=== PATIENT | female | born 1945 | race Caucasian/White ===

== ENCOUNTER 2022-04-27 18:18 | Inpatient (IN) ==
[2022-04-27] MEDS ORDERED: IPRATROPIUM BROMIDE/ALBUTEROL respimat INH INH STA (18:53)
[2022-04-27] MEDS ORDERED: guaiFENesin 600 MG TABCR PO STA (18:53)
[2022-04-27] MEDS ORDERED: SODIUM CHLORIDE 0.9% 1000ML 1,000 ML IV ONE (18:53)
[2022-04-27] MEDS ORDERED: dexAMETHasone**PF** 10 MG/ML VIAL IV ONE (18:53)
--- NOTE | 2022-04-27 19:00 | Emergency Department Note ---
Impression & Plan Pneumonia due to COVID-19 virus, Acute and chronic respiratory failure, Elevated troponin ED Provider Note NAME: HAY RICO AGE: 76 SEX: F ARRIVES VIA: Ambulance INFORMANT: Patient ED PROVIDER(S): Karthik Escobedo MD CHIEF COMPLAINT: SOB, Covid-19, referred PLAN: Disposition: Admit MEDICAL DECISION MAKING: The patient is a pleasant 76-year-old woman with a past medical history of chronic respiratory failure, COPD on 2 L home oxygen who presents to the emergency department for by her PCPs office for evaluation of shortness of breath increased cough and congestion over the past couple of days where she tested positive for COVID-19 on a home antigen test in the setting of having her niece who lives with her recently have COVID-19. Patient is vaccinated for COVID-19 but has not received any boosters. Denies any fevers, nausea, vomit ing, diarrhea urinary symptoms patient reports she is eating but is probably not hydrating much. The patient does minimize her symptoms to a degree and reports she only took a COVID test to see if she had a given others did as well. However family member at the bedside who also is a caregiver for the patient reports that it was noticed that she was working harder to breathe and had increased congestion. Additionally they note that her O2 saturation last night was a constant 60% with a good waveform per the patient's family member who is also a clinical nursing instructor. Given the report that her respiratory status has been worsening the patient is in agreement with plan for admission. On arrival the patient is chronically ill-appearing but no acute distress, afebrile with O2 saturation 88-90% on her 2 L nasal cannula. She has diminished breath sounds bilaterally with underlying wheeze. She has mild pursed lip breathing which she reports is chronic and intermittent for her. EKG without overt acute ischemia. Chest x-ray with nonspecific reticular opacities. WBC, H/H and platelets within normal limits. Chemistry without metabolic acidosis. Bicarbonate is 40 consistent with history of suspected chronic hypercapnia with VBG demonstrating a PCO2 of 73. pH is within normal limits. High-sensitivity troponin 31, nonspecific. BNP is within normal limits. Lipase is not elevated. COVID-19 PCR was positive. Patient was treated with IV fluid hydration, dexamethasone, Combivent and guaifenesin. She did require placement on oxime mask due to O2 saturation going down to 80% mostly due to inability to keep her cannula in her mouth given she is mouth breathing. Case was discussed with Dr. Ashby, [facility] hospitalist, who will evaluate the patient for admission. Triage Nursing notes reviewed and agree them. Prior medical records reviewed Vital Signs: reviewed and remarkable for hypoxia. Differential diagnosis: Reactive airway disease, pneumonia, pneumothorax, COPD, CHF, infections, cardiac ischemia, pulmonary embolism, musculoskeletal, gastrointestinal, as well as other pathologies. ER treatment provided: See below. Diagnostics interpreted by me: ECG: Sinus rhythm with sinus arrhythmia, 94 bpm, no ectopy, no overt ST el evation or depression, QTC 430, QRS 70 Cardiac Monitoring: An order for continuous cardiac monitoring was placed and demonstrated sinus rhythm, 94 bpm, no ectopy Laboratory studies: See below Imaging studies: See below Consultation(s): Case was discussed with Dr. Ashby, [facility] hospitalist, who will evaluate the patient for admission. HPI: The patient is a pleasant 76-year-old woman with a past medical history of chronic respiratory failure, COPD on 2 L home oxygen who presents to the emergency department for by her PCPs office for evaluation of shortness of michael ath increased cough and congestion over the past couple of days where she tested positive for COVID-19 on a home antigen test in the setting of having her niece who lives with her recently have COVID-19. Patient is vaccinated for COVID-19 but has not received any boosters. Denies any fevers, nausea, vomiting, diarrhea urinary symptoms patient reports she is eating but is probably not hydrating much. The patient does minimize her symptoms to a degree and reports she only took a COVID test to see if she had a given others did as well. However family member at the bedside who also is a caregiver for the patient reports that it was noticed that she was working harder to breathe and had incre ased congestion. Additionally they note that her O2 saturation last night was a constant 60% with a good waveform per the patient's family member who is also a clinical nursing instructor. Given the report that her respiratory status has been worsening the patient is in agreement with plan for admission. ROS: See above HPI for pertinent positives & negatives. A total of 10 systems reviewed and were otherwise negative. VITALS:See Below PHYSICAL EXAMINATION: GENERAL: Awake, alert, chronically ill-appearing, cachectic, in no distress HENT: Normocephalic, atraumatic. Oropharynx with dry mucous membranes and otherwise unremarkable. EYES: Normal conjunctiva. Sclera non-icteric. NECK: Supple. No nuchal rigidity. FROM. No JVD. RESPIRATORY: Diminished breath sounds bilaterally with underlying wheeze. CARDIAC: Regular rate, normal rhythm. Extremities warm and well perfused. Pulses equal. ABDOMEN: Soft, non-distended. No tenderness to palpation. No rebound or guarding. No masses. RECTAL: Deferred. MUSCULOSKELETAL: Chest examination reveals no tenderness. The back is symmetrical on inspection without obvious abnormality. There is no CVA tenderness to palpation. No joint edema. LOWER EXTREMITIES: Calves are equal size bilaterally and non-tender. No edema. No discoloration. NEURO: Normal sensorium. No sensory or motor deficits noted. SKIN: No rash or jaundice noted. ED COURSE: Critical Care: I have personally spent greater than 35 minutes of critical care time in the direct management of this patient. This includes bedside care, interpretation of diagnostic studies, and testing, discussion with consultants, patient, and family members, and other required patient management activities. This 35 minutes is in excess of all separately billable procedures. Karthik Escobedo MD Past Med/Surg History Medical History Chronic respiratory failure COPD (chronic obstructive pulmonary disease) Subclavian artery stenosis, left Family History Other Family history non-contributory Social History Smoking Status: Former smoker Hx Alcohol Use: No Hx Substance Use: No Current Living Situation: Family Feels Safe at Home: Yes Assistive Devices: Nebulizer and Oxygen - Continuous Allergies Allergies Allergy/AdvReac Type Severity Reaction Status Date / Time No Known Allergies Allergy Mild Verified 04/28/22 00:50 Home Meds Home Medications Medication Instructions Recorded Confirmed acetaminophen 500 mg tablet 500 mg PO Q6H PRN Pain 04/28/22 04/28/22 (Tylenol Extra Strength) albuterol sulfate 0 mg inhalation Q4H PRN Shortness 04/28/22 04/28/22 Of Breath Or Wheezing atorvastatin 20 mg tablet 1 tab PO DAILY 04/28/22 04/28/22 cholecalciferol (vitamin D3) 125 125 mcg PO 2XWK 04/28/22 04/28/22 mcg (5,000 unit) tablet (Vitamin D3) ibuprofen 200 mg tablet 400 mg PO Q6H PRN Pain 04/28/22 04/28/22 Results & Data (ED) Vital Signs Vital Signs - 24 hr 04/27/22 18:30 04/27/22 18:30 04/27/22 18:30 Temperature Temperature Source Pulse Rate 100 H Pulse Rate [Apical] Respiratory Rate 26 H Respiratory Effort / Characteristics Spontaneous Short of Breath SOB on Exertion Short of Breath Respiratory Depth Shallow Respiratory Pattern Tachypnea Blood Pressure 126/79 Blood Pressure [Left Arm] Blood Pressure Mean 94 Blood Pressure Mean [Left Arm] Pulse Oximetry 90 90 Oxygen Delivery Method Nasal Cannula Nasal Cannula Nasal Cannula Oxygen Flow Rate 2 2 2 Sepsis Recent Fever Within 48 Hours No Sepsis New/Unexplained Change in Mental Status No Sepsis Action Taken by Nursing No Action Required Oxygen Flow Rate - Titration Pulse Oximetry Post Tiitration 04/27/22 18:46 04/27/22 18:53 04/27/22 20:17 Temperature 37.2 C Temperature Source Oral Pulse Rate Pulse Rate [Apical] Respiratory Rate Respiratory Effort / Characteristics Respiratory Depth Respiratory Pattern Blood Pressure Blood Pressure [Left Arm] Blood Pressure Mean Blood Pressure Mean [Left Arm] Pulse Oximetry 90 85 L Oxygen Delivery Method Nasal Cannula Nasal Cannula Oxymask Oxygen Flow Rate 2 2 Sepsis Recent Fever Within 48 Hours Sepsis New/Unexplained Change in Mental Status Sepsis Action Taken by Nursing Oxygen Flow Rate - Titration 4 Pulse Oximetry Post Tiitration 92 04/27/22 22:03 04/27/22 22:03 04/28/22 00:00 Temperature Temperature Source Pulse Rate Pulse Rate [Apical] 98 H 84 Respiratory Rate 22 19 Respiratory Effort / Characteristics Respiratory Depth Respiratory Pattern Blood Pressure Blood Pressure [Left Arm] 132/71 130/73 Blood Pressure Mean Blood Pressure Mean [Left Arm] 91 92 Pulse Oximetry 80 L 80 L 96 Oxygen Delivery Method Nasal Cannula Nasal Cannula Oxymask Room Air Oxygen Flow Rate 2 2 Sepsis Recent Fever Within 48 Hours Sepsis New/Unexplained Change in Mental Status Sepsis Action Taken by Nursing Oxygen Flow Rate - Titration 5 Pulse Oximetry Post Tiitration 98 Laboratory Data Attestation: I reviewed the patient's lab results. Result diagrams: 04/28/22 05:51 04/27/22 19:56 Lab Results 04/27/22 04/27/22 04/27/22 Range/Units 18:53 18:53 18:57 WBC 5.31 (4.8-10.8) K/ul RBC 4.21 (3.93-5.22) M/uL Hgb 13.4 (12.0-16.0) g/dl Hct 42.2 (34.1-44.9) % MCV 100.2 H (80.0-100.0) fL MCH 31.8 (25.0-34.0) pg MCHC 31.8 L (32.0-36.0) g/dL RDW Std Deviation 46.4 H (36.4-46.3) fL RDW Coeff of Usman 12.5 (11.5-14.5) % Plt Count 215 (130-400) K/uL MPV 10.0 (9.4-12.3) fL Immature Gran % (Auto) 0.2 % Neut % (Auto) 72.3 % Lymph % (Auto) 15.3 % [place]oshone % (Auto) 10.7 % Eos % (Auto) 1.1 % Baso % (Auto) 0.4 % Neut # (Auto) 3.84 (1.4-6.5) K/uL Lymph # (Auto) 0.81 L (1.2-3.4) K/uL Shoshone # (Auto) 0.57 (0.24-0.82) K/uL Eos # (Auto) 0.06 (0-0.50) K/uL Baso # (Auto) 0.02 (0-0.2) K/uL Immature Gran # (Auto) 0.01 (0.00-0.02) K/uL VBG pH Cancelled VBG pCO2 Cancelled VBG pO2 Cancelled VBG HCO3 Cancelled VBG O2 Saturation Cancelled VBG Base Excess Cancelled Barometric Pressure Cancelled Sodium (136-145) mmol/L Potassium Chloride (98-107) mmol/L Carbon Dioxide (21-32) mmol/L Anion Gap (3-11) BUN (6-23) mg/dl Creatinine (0.6-1.2) mg/dl Est Cr Clr Drug Dosing ml/min Est GFR ( Amer) ml/min Est GFR (Non-Af Amer) ml/min BUN/Creatinine Ratio (10-20) Glucose (70-99(Fasting)) mg/dl Calcium (8.5-10.1) mg/dl Total Bilirubin (0.2-1.0) mg/dl AST ALT (7-52) U/L Alkaline Phosphatase (34-104) U/L Troponin I High Sens (0-14) pg/ml B-Natriuretic Peptide 38 (0-100) pg/ml Total Protein (6.0-8.3) gm/dl Albumin (3.4-5.0) gm/dl Globulin (2.5-4.0) gm/dl Albumin/Globulin Ratio (0.9-2) Lipase (11-82) U/L SARS-CoV-2 (PCR) (Negative) 04/27/22 04/27/22 04/27/22 Range/Units 18:57 19:18 19:56 WBC (4.8-10.8) K/ul RBC (3.93-5.22) M/uL Hgb (12.0-16.0) g/dl Hct (34.1-44.9) % MCV (80.0-100.0) fL MCH (25.0-34.0) pg MCHC (32.0-36.0) g/dL RDW Std Deviation (36.4-46.3) fL RDW Coeff of Usman (11.5-14.5) % Plt Count (130-400) K/uL MPV (9.4-12.3) fL Immature Gran % (Auto) % Neut % (Auto) % Lymph % (Auto) % [place]oshone % (Auto) % Eos % (Auto) % Baso % (Auto) % Neut # (Auto) (1.4-6.5) K/uL Lymph # (Auto) (1.2-3.4) K/uL Shoshone # (Auto) (0.24-0.82) K/uL Eos # (Auto) (0-0.50) K/uL Baso # (Auto) (0-0.2) K/uL Immature Gran # (Auto) (0.00-0.02) K/uL VBG pH 7.39 VBG pCO2 73 H VBG pO2 19 VBG HCO3 44 VBG O2 Saturation < 60.0 VBG Base Excess 15.5 Barometric Pressure Sodium 137 (136-145) mmol/L Potassium TNP Chloride 92 L (98-107) mmol/L Carbon Dioxide 40 H (21-32) mmol/L Anion Gap 5 (3-11) BUN 10 (6-23) mg/dl Creatinine 0.58 L (0.6-1.2) mg/dl Est Cr Clr Drug Dosing 84.8 ml/min Est GFR ( Amer) 104.5 ml/min Est GFR (Non-Af Amer) 90.2 ml/min BUN/Creatinine Ratio 17.2 (10-20) Glucose 91 (70-99(Fasting)) mg/dl Calcium 8.9 (8.5-10.1) mg/dl Total Bilirubin 0.6 (0.2-1.0) mg/dl AST TNP ALT 15 (7-52) U/L Alkaline Phosphatase 59 (34-104) U/L Troponin I High Sens 31.0 H (0-14) pg/ml B-Natriuretic Peptide (0-100) pg/ml Total Protein 6.9 (6.0-8.3) gm/dl Albumin 3.7 (3.4-5.0) gm/dl Globulin 3.2 (2.5-4.0) gm/dl Albumin/Globulin Ratio 1.2 (0.9-2) Lipase 18 (11-82) U/L SARS-CoV-2 (PCR) POSITIVE A* (Negative) 04/27/22 Range/Units 19:56 WBC (4.8-10.8) K/ul RBC (3.93-5.22) M/uL Hgb (12.0-16.0) g/dl Hct (34.1-44.9) % MCV (80.0-100.0) fL MCH (25.0-34.0) pg MCHC (32.0-36.0) g/dL RDW Std Deviation (36.4-46.3) fL RDW Coeff of Usman (11.5-14.5) % Plt Count (130-400) K/uL MPV (9.4-12.3) fL Immature Gran % (Auto) % Neut % (Auto) % Lymph % (Auto) % [place]oshone % (Auto) % Eos % (Auto) % Baso % (Auto) % Neut # (Auto) (1.4-6.5) K/uL Lymph # (Auto) (1.2-3.4) K/uL [place]oshone # (Auto) (0.24-0.82) K/uL Eos # (Auto) (0-0.50) K/uL Baso # (Auto) (0-0.2) K/uL Immature Gran # (Auto) (0.00-0.02) K/uL VBG pH VBG pCO2 VBG pO2 VBG HCO3 VBG O2 Saturation VBG Base Excess Barometric Pressure Sodium (136-145) mmol/L Potassium 4.0 Chloride (98-107) mmol/L Carbon Dioxide (21-32) mmol/L Anion Gap (3-11) BUN (6-23) mg/dl Creatinine (0.6-1.2) mg/dl Est Cr Clr Drug Dosing ml/min Est GFR ( Amer) ml/min Est GFR (Non-Af Amer) ml/min BUN/Creatinine Ratio (10-20) Glucose (70-99(Fasting)) mg/dl Calcium (8.5-10.1) mg/dl Total Bilirubin (0.2-1.0) mg/dl AST 23 ALT (7-52) U/L Alkaline Phosphatase (34-104) U/L Troponin I High Sens (0-14) pg/ml B-Natriuretic Peptide (0-100) pg/ml Total Protein (6.0-8.3) gm/dl Albumin (3.4-5.0) gm/dl Globulin (2.5-4.0) gm/dl Albumin/Globulin Ratio (0.9-2) Lipase (11-82) U/L SARS-CoV-2 (PCR) (Negative) Administered Medications Sodium Chloride (Nss 1000ml) 1,000 mls @ 75 mls/hr IV .[id number] ALBERTINA Stop: 04/28/22 15:42 Last Infusion: 04/28/22 05:36 Dose: 75 mls/hr Documented By: Infusion: 04/28/22 03:33 Dose: 0 mls/hr Documented By: Admin: 04/28/22 02:50 Dose: 75 mls/hr Documented By: JOY Discontinued Medications Albuterol (Ipratropium Amenia/Albuterol Respimat Inh) 2 puffs INH NOW STA Stop: 04/27/22 18:54 Last Admin: 04/27/22 20:21 Dose: 120 puffs Documented By: EDGAR Dexamethasone Sodium Phosphate (DexamethasonePf 10 Mg/Ml Vial) 10 mg IV NOW ONE Stop: 04/27/22 18:54 Last Admin: 04/27/22 20:20 Dose: 10 mg Documented By: EDGAR Guaifenesin (Guaifenesin 600 Mg Tabcr) 1,200 mg PO NOW STA Stop: 04/27/22 18:54 Last Admin: 04/27/22 20:20 Dose: 1,200 mg Documented By: EDGAR Sodium Chloride (Nss 1000ml) 1,000 mls @ 999 mls/hr IV .[id number] ONE Stop: 04/27/22 19:53 Last Infusion: 04/27/22 22:02 Dose: 0 mls/hr Documented By: Admin: 04/27/22 20:20 Dose: 999 mls/hr Documented By: EDGAR Remdesivir 200 mg/ Sodium (Chloride) 250 mls @ 125 mls/hr IV ONE ONE; Protocol Stop: 04/28/22 04:44 Last Infusion: 04/28/22 05:36 Dose: 0 mls/hr Documented By: Admin: 04/28/22 03:22 Dose: 125 mls/hr Documented By: JOY Imaging Data Radiologist's Impression: Chest X-Ray 04/27/22 18:53 XR chest 1V portable CLINICAL HISTORY: Chest Pain TECHNIQUE: Single frontal radiograph of the chest was obtained. Comparison: Comparison is made to chest radiograph 08/13/2016 FINDINGS: No lines and tubes are seen. The cardiomediastinal silhouette is normal. Reticular interstitial opacities are seen. No evidence of pleural effusion or pneumothorax. IMPRESSION: No acute chest disease. ACT 112: Negative or not required by law. Electronically signed by: Winston Adkins M.D. 04/27/2022 7:14 PM Discharge Plan Visit Data Chief Complaint: Shortness of Breath/Dyspnea ED Provider: Karthik Escobedo Discharge Problem: Pneumonia due to COVID-19 virus, Acute and chronic respiratory failure, Elevated troponin Patient Disposition: Admitted As Inpatient Discharge Instructions Interventions: ED Discharge Assessment Last Done: 04/28/22 01:54 : Acute and chronic respiratory failure Qualifiers: Respiratory failure complication: hypoxia and hypercapnia Qualified Code(s): J96.21 - Acute and chronic respiratory failure with hypoxia
[2022-04-27 19:15] LABS: Basophils # (auto) 0.02 K/uL (0-0.2); Basophils % (auto) 0.4 %; Eosinophils # (auto) 0.06 K/uL (0-0.50); Eosinophils % (auto) 1.1 %; Hematocrit (blood only) 42.2 % (34.1-44.9); Hemoglobin 13.4 g/dl (12.0-16.0); Immature Granulocytes # (auto) 0.01 K/uL (0.00-0.02); Immature Granulocytes % (auto) 0.2 %; Lymphocytes # (auto) 0.81 K/uL (1.2-3.4); Lymphocytes % (auto) 15.3 %; Mean Corpuscular Hemoglobin 31.8 pg (25.0-34.0); Mean Corpuscular Hgb Conc 31.8 g/dL (32.0-36.0); Mean Corpuscular Volume 100.2 fL (80.0-100.0); Monocytes # (auto) 0.57 K/uL (0.24-0.82); Monocytes % (auto) 10.7 %; Neutrophils # (auto) 3.84 K/uL (1.4-6.5); Neutrophils % (auto) 72.3 %; Platelet Count 215 K/uL (130-400); RDW Coefficient of Variation 12.5 % (11.5-14.5); RDW Standard Deviation 46.4 fL (36.4-46.3); Red Blood Count 4.21 M/uL (3.93-5.22); White Blood Count 5.31 K/ul (4.8-10.8)
--- NOTE | 2022-04-27 19:15 | XRay Report ---
XR chest 1V portable CLINICAL HISTORY: Chest Pain TECHNIQUE: Single frontal radiograph of the chest was obtained. Comparison: Comparison is made to chest radiograph 08/13/2016 FINDINGS: No lines and tubes are seen. The cardiomediastinal silhouette is normal. Reticular interstitial opaci ties are seen. No evidence of pleural effusion or pneumothorax. IMPRESSION: No acute chest disease. ACT 112: Negative or not required by law. Electronically signed by: Winston Adkins M.D. 04/27/2022 7:14 PM
[2022-04-27 19:45] LABS: Alanine Aminotransferase 15 U/L (7-52); Albumin Globulin Ratio 1.2 (0.9-2); Albumin Level 3.7 gm/dl (3.4-5.0); Alkaline Phosphatase 59 U/L (34-104); Anion Gap 5 (3-11); BUN Creatinine Ratio 17.2 (10-20); Bilirubin,Total 0.6 mg/dl (0.2-1.0); Blood Urea Nitrogen 10 mg/dl (6-23); Calcium 8.9 mg/dl (8.5-10.1); Carbon Dioxide 40 mmol/L (21-32); Chloride 92 mmol/L (98-107); Creatinine Clr Calc Pharmacy 84.8 ml/min; Est GFR (African American) 104.5 ml/min; Est GFR (Non-African American) 90.2 ml/min; Globulin 3.2 gm/dl (2.5-4.0); Glucose 91 mg/dl (70-99(Fasting)); Lipase 18 U/L (11-82); Sodium 137 mmol/L (136-145); Total Protein 6.9 gm/dl (6.0-8.3)
[2022-04-27 20:08] LABS: Base Excess VBG 15.5 mEq/L; HCO3 VBG 44 mmol/L; Oxygen Saturation VBG < 60.0 %; PCO2 VBG 73 mmHg (38-50); PO2 VBG 19 mmHg; pH VBG 7.39 (7.36-7.41)
[2022-04-28] MEDS ORDERED: LEVALBUTEROL HCL 1.25 MG/3 ML NEB NEB PRN ×2 (02:23→13:04)
[2022-04-28] MEDS ORDERED: ONDANSETRON INJ 2 MG/ML 2 ML VIAL IV PRN (02:23)
[2022-04-28] MEDS ORDERED: NITROGLYCERIN SL 0.4 MG/TAB TAB SL PRN (02:23)
[2022-04-28] MEDS ORDERED: POLYETHYLENE (MIRALAX) 17 GM PACK PO PRN (02:23)
[2022-04-28] MEDS ORDERED: SODIUM CHLORIDE 0.9% 1000ML 1,000 ML IV SCH (02:23)
[2022-04-28] MEDS ORDERED: REMDESIVIR 200 MG in SODIUM CHLORIDE 0.9% 210 ML IV ONE (02:45)
[2022-04-28 06:12] LABS: Basophils # (auto) 0.01 K/uL (0-0.2); Basophils % (auto) 0.4 %; Hemoglobin 11.6 g/dl (12.0-16.0); Immature Granulocytes # (auto) 0.01 K/uL (0.00-0.02); Immature Granulocytes % (auto) 0.4 %; Lymphocytes # (auto) 0.33 K/uL (1.2-3.4); Lymphocytes % (auto) 12.4 %; Mean Corpuscular Hemoglobin 32.1 pg (25.0-34.0); Mean Corpuscular Hgb Conc 32.2 g/dL (32.0-36.0); Mean Corpuscular Volume 99.7 fL (80.0-100.0); Mean Platelet Volume 9.7 fL (9.4-12.3); Monocytes # (auto) 0.03 K/uL (0.24-0.82); Monocytes % (auto) 1.1 %; Neutrophils # (auto) 2.28 K/uL (1.4-6.5); Neutrophils % (auto) 85.7 %; Platelet Count 222 K/uL (130-400); RDW Coefficient of Variation 12.2 % (11.5-14.5); RDW Standard Deviation 44.5 fL (36.4-46.3); Red Blood Count 3.61 M/uL (3.93-5.22); White Blood Count 2.66 K/ul (4.8-10.8)
--- NOTE | 2022-04-28 06:16 | History and Physical Report ---
DATE OF ADMISSION: 04/28/22 CHIEF COMPLAINT: Shortness of breath. HISTORY OF PRESENT ILLNESS: A 76-year-old female with past medical history significant for COPD, chronic respiratory failure on 2 liters oxygen at home, history of hyperlipidemia, questionable MS, history of transverse myelitis, who presents with shortness of breath. The patient says she is having increased shortness of breath and mild cough for the last couple of days and she has some nasal congestion and at home she tested COVID positive. It looks like she was having increased breathing at home and she lives with her granddaughters. Her caregiver when checked her oxygen saturation yesterday it was 60%, but patient refused to come to the hospital , and today when EMS arrived she was saturating only at 67% and she was brought in here. In the ER, initially oxygen was 88% to 90% on 2 liters, but later on she was required to be placed on OxyMask as oxygen saturation was going down to 80% as the patient had inability to keep her cannula in her month given her mouth breathing. Currently on Ventimask she is saturating okay. Speaking in full sentences, resting comfortably. The patient says she thinks she has mild COVID and she had actually wanted to stay at home. She was reluctant to take remdesivir because of possible long-term side effects, but she agreed to try. Denies any headache. No blurred visions, no earache. Has some runny nose. No sore throat. Mild cough. No nausea, no vomiting, no chest pain. Appetite is okay. No abdominal pain. Has some diarrhea. Normal bladder, not micturating much. She says her ambulatory status is on walker and wheelchair. ALLERGIES: No known drug allergies. PAST MEDICAL HISTORY: As mentioned above. PAST SURGICAL HISTORY: Left hip surgery. MEDICATIONS: The patient says she is only taking atorvastatin 20 mg p.o. daily and calcium tablet and nebs at home. FAMILY HISTORY: The patient says is significant for hypertension, diabetes, and cancer in the family. SOCIAL HISTORY: She used to smoke, but quit smoking many years ago. Denies any drug use or alcohol. Lives with her granddaughter. REVIEW OF SYSTEMS: As per HPI. Rest of review of systems is negative. PHYSICAL EXAMINATION: GENERAL: The patient is of moderate build, not in acute distress. VITAL SIGNS: Temperature 37.2, pulse 98, respiratory rate 22, blood pressure 132/71, oxygen currently in 90s with Ventimask. HEENT: Pupils equal, round, and reactive to light. NECK: No JVD. No neck masses. CARDIOVASCULAR: S1 and S2 heard. Regular rate and rhythm. No murmur, no gallop. RESPIRATORY SYSTEM: Normal AP diameter. No accessory muscle use. Diminished bilateral breath sounds. No obvious wheezing or crackles. ABDOMEN: Soft, bowel sounds present, nontender, no distention. CENTRAL NERVOUS SYSTEM: Cranial nerves II through XII are grossly intact, nonfocal. EXTREMITIES: No edema, no erythema. LABORATORY DATA: WBC 5.3, hemoglobin 13.4, hematocrit 42.2, platelets 215. Venous blood gas, pH of 7.39, pCO2 of 73, pO2 of 19, bicarbonate 44. Sodium 137, potassium 4, chloride 92, bicarbonate 40, BUN 10, creatinine 0.5, serum glucose 91, calcium 8.9, total bilirubin 0.6, AST 23, ALT 15, alkaline phosphatase 59. BNP 38. Lipase 18. SARS-CoV-2 PCR positive. IMAGING DATA: Chest x-ray, no acute chest disease. EKG: Sinus rhythm with mild sinus arrhythmia at a rate of 94, no significant change was found. ASSESSMENT AND PLAN: This is a 76-year-old female who presents with [id number] respiratory failure secondary to COVID. 1. [id number] respiratory failure: The patient has history of chronic obstructive pulmonary disease and chronically is on 2 liters oxygen, was saturating only 60% at home. COVID positive, has symptoms for the last 2 days. Chest x-ray okay. The patient is COVID vaccinated twice, but not boosted. Meets criteria for remdesivir, which the patient initially was reluctant, but okay to try. Will be started on remdesivir and Decadron and follow remdesivir labs and follow the response. Will monitor in the hospital. Will also place on inhalers and nebs p.r.n. 2. Hyperlipidemia: Continue statin. 3. Deep venous thrombosis prophylaxis: With Lovenox. DISPOSITION: Admit to med tele. PT/OT prior to discharge. Social service to help with discharge planning. Job ID: [id number] [facility]on
[2022-04-28 06:45] LABS: BUN Creatinine Ratio 16.7 (10-20); Calcium 7.7 mg/dl (8.5-10.1); Creatinine Clr Calc Pharmacy 75.7 ml/min; Est GFR (Non-African American) 92.3 ml/min; Magnesium 1.6 mg/dl (1.7-2.4); Potassium 4.3 mmol/L (3.5-5.1)
[2022-04-28] MEDS: ALBUTEROL HFA 8 GM INHALER INH SCH ×2 (07:26→11:39)
[2022-04-28] MEDS: IPRATROPIUM BROMIDE HFA INHALER INH SCH ×2 (07:27→11:40)
[2022-04-28] MEDS: CALCIUM 600MG + VIT D 400 IU TAB PO SCH ×2 (08:44→22:40)
[2022-04-28] MEDS: ATORVASTATIN 20 MG TAB PO SCH (08:44)
[2022-04-28] MEDS: ENOXAPARIN INJ 40 MG/0.4 ML SYR SQ SCH (08:45)
[2022-04-28] MEDS: MAGNESIUM SULFATE / D5W 1 GM/100 ML BAG IV SCH ×2 (08:46→10:44)
[2022-04-28] MEDS ORDERED: dexAMETHasone 6 MG in SYRINGE 0 ML IV SCH (09:00)
[2022-04-28] MEDS ORDERED: BUDESONIDE 90 MCG INH INH SCH (09:00)
[2022-04-28] MEDS ORDERED: IPRATROPIUM BROMIDE/ALBUTEROL respimat INH INH SCH (09:00)
[2022-04-28] MEDS ORDERED: FLUTICASONE FUROATE 100MCG 14 PUFFS/INHALER INH SCH (09:00)
[2022-04-28] MEDS ORDERED: IPRATROPIUM BROMIDE NEB SOLN 0.02% 2.5 ML VIAL NEB PRN (13:04)
[2022-04-28] MEDS ORDERED: ALBUTEROL HFA 8 GM INHALER INH PRN (13:06)
--- NOTE | 2022-04-28 17:02 | Hospitalist Progress Note ---
Date of Service April 28, 2022 Assessment & Plan (1) Acute and chronic respiratory failure: Plan: Secondary COVID-19 infection. She has a history of chronic obstructive pulmonary disease and was found to be saturating 60% at home. Chest x-ray reveals no evidence of pneumonia at this point. Patient was vaccinated but not boosted. Continues on remdesivir and Decadron. Monitor closely her level of agitation on steroids. Has a junky cough but reports this is normal. Declines cough syrup at this time. (2) COVID-19 virus infection: Plan: Continue isolation, plan as above. (3) Elevated troponin: Plan: Mildly elevated troponin in setting of acute illness with nonischemic EKG and no evidence of chest pain. Likely related to demand ischemia as opposed to ACS. No further cardiac work-up at this time. (4) Ambulatory dysfunction: Plan: Chronic ambulatory dysfunction, uses a walker to get around. Interested in home resources. Patient lives in more remote location in [place]. Will involve case management for assistance with resources help. (5) COPD (chronic obstructive pulmonary disease): Plan: Currently not in exacerbation. Appears rather symptomatic at baseline, uncertain how many exacerbations per year but has been hospitalized for exacerbations. Started her on umeclidinum/Vilanterol 1 puff daily to continue through discharge which may help with baseline dyspnea. (6) DVT prophylaxis: Plan: Lovenox Full code Disposition-to home pending PT/OT evaluations. Admission and Anticipated Discharge Date Admission Date: April 28, 2022 Subjective 76-year-old female with a history of COPD on chronic home oxygen presented for evaluation of shortness of breath and cough over the past couple of days secondary to COVID-19. Chest x-ray is negative for pneumonia. Patient states that she does not feel short of breath today or have any cough or any symptoms. She is very agitated at being isolated in the current room. She denies using any daily home inhalers and does not see a bobbin loose end finder for COPD. She is agitated from not having a bowel movement yet and from being uncomfortable in bed and being told she can't ambulate. She is requesting help with ambulation and typically ambulates with a walker. She has chronic numbness in her fingers and toes related to self-reported transverse myelitis, and is going through a work-up for diagnosis of possible MS. She depends on family members to provide care for her at home and is interested in resources related to home care. Chronic junky cough reported No shortness of breath or chest pain Review of Systems Review of Systems: All systems are reviewed negative except as indicated above. Physical Exam Physical Exam: CONSTITUTIONAL: WNWD, vitals as above, generally well- appearing, NAD EYES: normal conjunctivae, no scleral icterus ENT: external ear and nose normal,MMM NECK: trachea midline, RESPIRATORY: min rhonchi at bases bilaterally, no rales or wheezes, normal respiratory effort, 2LPM supplemental oxygen in place. CARDIOVASCULAR: regular rate and rhythm, S1 and 2 heard without murmurs, gallops or rubs, no JVD, no peripheral edema CHEST: inspection of chest was normal GASTROINTESTINAL: soft, nontender, ND, no guarding MUSCULOSKELETAL: strength 5/5 throughout, head is normocephalic and atraumatic SKIN: warm and dry NEUROLOGIC: CN 2-12 grossly intact, no sensory deficit, normal cognition, normal speech, no tremor PSYCHIATRIC: alert cooperative and oriented to person, place and time. Results & Data Results & Data ([facility]) Vital Signs (Past 12 Hours) Vital Signs Temp Pulse Pulse Resp BP BP Pulse Ox 04/28/22 16:47 36.6 C 82 22 138/80 95 04/28/22 14:18 93 H 04/28/22 14:18 116 H 04/28/22 06:08 63 04/28/22 11:41 79 18 91 04/28/22 10:30 04/28/22 08:07 36.9 C 71 20 117/79 91 04/28/22 07:27 73 18 96 O2 Del Method O2 Flow Rate 04/28/22 16:47 Oxymask 2.5 04/28/22 14:18 04/28/22 14:18 04/28/22 06:08 04/28/22 11:41 Oxymask 2 04/28/22 10:30 Oxymask 2.5 04/28/22 08:07 Oxymask 2 04/28/22 07:27 Oxymask 2 Laboratory Results Short CBC 04/27/22 04/28/22 Range/Units 18:57 05:51 WBC 5.31 2.66 L (4.8-10.8) K/ul Hgb 13.4 11.6 L (12.0-16.0) g/dl Hct 42.2 36.0 (34.1-44.9) % Plt Count 215 222 (130-400) K/uL BMP 04/27/22 04/27/22 04/28/22 18:57 19:56 05:51 Sodium 137 136 Potassium TNP 4.0 4.3 Chloride 92 L 96 L Carbon Dioxide 40 H 36 H BUN 10 9 Creatinine 0.58 L 0.54 L Glucose 91 140 H Calcium 8.9 7.7 L Liver Function 04/27/22 04/27/22 Range/Units 18:57 19:56 Total Bilirubin 0.6 (0.2-1.0) mg/dl AST TNP 23 ALT 15 (7-52) U/L Alkaline Phosphatase 59 (34-104) U/L Albumin 3.7 (3.4-5.0) gm/dl Medications Administered Current Inpatient Medications Acetaminophen (Acetaminophen 325 Mg Tab) 650 mg PO Q4H PRN PRN Reason: Pain or Fever Stop: 05/28/22 02:22 Albuterol (Albuterol Hfa 8 Gm Inhaler) 1 puffs INH QIDR PRN PRN Reason: SOB/wheezing Stop: 05/28/22 06:59 Atorvastatin Calcium (Atorvastatin 20 Mg Tab) 20 mg PO QAM ALBERTINA Stop: 05/28/22 08:59 Last Admin: 04/28/22 08:44 Dose: 20 mg Enoxaparin Sodium (Enoxaparin Inj 40 Mg/0.4 Ml Syr) 40 mg SQ Q24H ALBERTINA Stop: 05/28/22 08:59 Last Admin: 04/28/22 08:45 Dose: 40 mg Fluticasone Furoate (Fluticasone Furoate 100mcg 14 Puffs/Inhaler) 1 puffs INH DAILY ALBERTINA Stop: 05/28/22 08:59 Last Admin: 04/28/22 08:45 Dose: 1 puffs Dexamethasone 6 mg/ Syringe 1.5 mls @ 1 mls/min IV DAILY ALBERTINA Stop: 05/08/22 08:59 Last Admin: 04/28/22 08:46 Dose: 1 mls/min Remdesivir 100 mg/ Sodium (Chloride) 250 mls @ 250 mls/hr IV Q24H ALBERTINA Stop: 05/02/22 12:59 Ipratropium [place] (Ipratropium [place] Neb Soln 0.02% 2.5 Ml Vial) 0.5 mg NEB Q6R PRN PRN Reason: SOB/wheezing Stop: 05/28/22 18:59 Levalbuterol HCl (Levalbuterol Hcl 1.25 Mg/3 Ml Neb) 1.25 mg NEB Q6R PRN; Protocol PRN Reason: Shortness Of Breath Or Wheezing Stop: 05/28/22 02:22 Multivitamins/Minerals (Calcium 600mg + Vit D 400 Iu Tab) 1 tab PO BID ALBERTINA Stop: 05/28/22 08:59 Last Admin: 04/28/22 08:44 Dose: 1 tab Nitroglycerin (Nitroglycerin Sl 0.4 Mg/Tab Tab) 0.4 mg SL Q5M PRN PRN Reason: Chest Pain Stop: 05/28/22 02:22 Ondansetron HCl (Ondansetron Inj 2 Mg/Ml 2 Ml Vial) 4 mg IV Q6H PRN PRN Reason: Nausea Stop: 05/28/22 02:22 Polyethylene Glycol (Polyethylene (Miralax) 17 Gm Pack) 17 gm PO DAILY PRN PRN Reason: Constipation Stop: 05/28/22 02:22 (1) Acute and chronic respiratory failure Respiratory failure complication: hypoxia and hypercapnia Qualified Code(s): J96.21 - Acute and chronic respiratory failure with hypoxia; J96.22 - Acute and chronic respiratory failure with hypercapnia
--- NOTE | 2022-04-28 18:02 | Electrocardiogram Report ---
Test Reason : Blood Pressure : / mmHG Vent. Rate : 094 BPM Atrial Rate : 094 BPM P-R Int : 152 ms QRS Dur : 070 ms QT Int : 344 ms P-R-T Axes : 088 041 077 degrees QTc Int : 430 ms Sinus rhythm with marked sinus arrhythmia Possible Left atrial enlargement Borderline ECG When compared with ECG of 14-AUG-2016 07:25, No significant change was found Confirmed by Bran Azul ([id number]) on 04/28/2022 6:02:05 PM Referred By: REFERRED SELF Confirmed By:Charles Azul
[2022-04-29] MEDS: ACETAMINOPHEN 325 MG TAB PO PRN ×2 (04:05→09:00)
[2022-04-29 06:42] LABS: Hematocrit (blood only) 37.8 % (34.1-44.9); Hemoglobin 12.4 g/dl (12.0-16.0); Mean Corpuscular Hemoglobin 31.9 pg (25.0-34.0); Mean Corpuscular Hgb Conc 32.8 g/dL (32.0-36.0); Mean Corpuscular Volume 97.2 fL (80.0-100.0); Mean Platelet Volume 9.9 fL (9.4-12.3); Platelet Count 281 K/uL (130-400); RDW Coefficient of Variation 12.1 % (11.5-14.5); RDW Standard Deviation 43.4 fL (36.4-46.3); Red Blood Count 3.89 M/uL (3.93-5.22); White Blood Count 7.43 K/ul (4.8-10.8)
[2022-04-29 07:03] LABS: BUN Creatinine Ratio 28.9 (10-20); C Reactive Protein 1.67 mg/dl (0-0.5); Calcium 8.1 mg/dl (8.5-10.1); Creatinine Clr Calc Pharmacy 90.9 ml/min; Est GFR (African American) 113.6 ml/min; Potassium 4.1 mmol/L (3.5-5.1)
[2022-04-29] MEDS: UMECLIDINIUM/VILANTEROL 62.5/25MCG 7 PUFFS/INHALER INH SCH (08:08)
[2022-04-29] MEDS: ATORVASTATIN 20 MG TAB PO SCH (08:08)
[2022-04-29] MEDS: CALCIUM 600MG + VIT D 400 IU TAB PO SCH ×2 (08:08→19:52)
[2022-04-29] MEDS: ENOXAPARIN INJ 40 MG/0.4 ML SYR SQ SCH (08:08)
[2022-04-29] MEDS ORDERED: dexAMETHasone 4 MG TAB PO SCH (09:00)
[2022-04-29] MEDS ORDERED: REMDESIVIR 100 MG in SODIUM CHLORIDE 0.9% 230 ML IV SCH ×2 (12:00→20:00)
--- NOTE | 2022-04-29 12:50 | Pulmonary Consultation ---
Date of Consultation April 29, 2022 Assessment & Plan (1) COPD (chronic obstructive pulmonary disease): (2) Hypoxemia: (3) Pneumonia due to COVID-19 virus: Plan Impression: 76-year-old female with history of advanced emphysema and chronic hypoxemic respiratory failure admitted with positive COVID test and worsening hypoxemia. Unfortunately we do not have access to her prior database including pulmonary function test and which inhaler she was using. Recommendations: 1. Advanced COPD: The patient clinically has cachexia and conversational dyspnea. She says this is her baseline. I suspect she has advanced COPD. No indication for testing currently in an acute setting. Continue trial of Anoro and use as needed duo nebs. Could consider chronic azithromycin therapy depending on clinical response. 2. COVID infection: I think the patient is outside the window of clinical benefit for remdesivir. She may have benefited from paxlovid in the outpatient setting however this medication is not approved for inpatient setting. Continue Decadron 6 mg daily until oxygen saturations are at baseline. 3. Hypoxemic respiratory failure: This is due to COPD with VQ mismatch as well as chronic hypercarbia. Her venous blood gas showed a pH of 7.39 with a CO2 elevated at 70. She may benefit from nocturnal trilogy in the outpatient setting. Do not think she needs BiPAP currently. 4. Given the patient's hypoxemic hypercarbic respiratory failure and cachexia, she is a poor candidate for mechanical ventilation in the event that her clinical condition should worsen. Recommend discussion with patient regarding goals of therapy with specific attention to CODE STATUS. 5. Management of the patient's other medical issues is deferred to the admitting hospitalist. Thanks for the opportunity participating in the care of this patient. We will follow with you. Feel free to contact us with questions History of Present Illness Attending Physician: Yeni Andrade, DO History of Present Illness Asked by hospitalist to evaluate this patient with COPD and chronic hypoxemic respiratory failure admitted for shortness of breath and COVID. History is obtained from discussion with the patient and reviewed electronic medical record. Patient is a 76-year-old female who previously saw Dr. Thibodeaux although this must of been more than 15 or 20 years ago as there are no clinical notes available to review. She has a history of COPD and chronic hypoxemic respiratory failure. She lives with family members who were diagnosed with COVID several weeks ago. She developed increasing shortness of breath and had a home COVID test which was positive. The patient was seeking outpatient therapy but due to her hypoxemia it was recommended that she be admitted to the hospital. She was admitted and placed on remdesivir although she likely is outside the window for this medication. She was also given dexamethasone. Obtaining history from the patient is difficult as her thought processes are somewhat tangential. She initially was fixated on the fact that she did not want to be in the hospital but then when I asked her about going home she states she does not want a leave the hospital. She is very frustrated that I do not have all of Dr. Thibodeaux's prior notes even though she last saw him over 15 or 20 years ago. She states she has had breathing test performed in the past but we do not have those results available to review. She is been placed on inhalers but cannot recall which ones she uses. She does not report any chronic sputum p roduction. Review of prior notes indicates a prior history of nontuberculous mycobacterial infection. She is tachypneic with conversation however she states her breathing is at her baseline. She does have an albuterol nebulizer which she uses at home on an as-needed basis but usually only uses it once or twice a week. Allergies Allergy/AdvReac Type Severity Reaction Status Date / Time No Known Allergies Allergy Mild Verified 04/28/22 00:50 Home Medications Medication Instructions Recorded Confirmed Type acetaminophen 500 mg tablet 500 mg PO Q6H PRN Pain 04/28/22 04/28/22 History (Tylenol Extra Strength) albuterol sulfate 0 mg inhalation Q4H PRN Shortness 04/28/22 04/28/22 History Of Breath Or Wheezing atorvastatin 20 mg tablet 1 tab PO DAILY 04/28/22 04/28/22 History cholecalciferol (vitamin D3) 125 125 mcg PO 2XWK 04/28/22 04/28/22 History mcg (5,000 unit) tablet (Vitamin D3) ibuprofen 200 mg tablet 400 mg PO Q6H PRN Pain 04/28/22 04/28/22 History Patient History Medical History Chronic respiratory failure COPD (chronic obstructive pulmonary disease) Subclavian artery stenosis, left Family History Other Family history non-contributory Social History Smoking Status: Former smoker Hx Alcohol Use: No Hx Substance Use: No Communication Ability: Effective Current Living Situation: Family Feels Safe at Home: Yes Assistive Devices: Walker and Wheelchair Assistive Devices Comment: pt does not walk ususally, she is chair bound Review of Systems Review of Systems: Please refer to admission H&P. No additions or deletions Physical Exam Constitutional: + cachectic and + frail appearing Neck: trachea midline, no thyromegaly Respiratory: + labored breathing and + tachypneic Auscultation: no crackles and no wheezes Diminished breath sounds bilaterally Cardiovascular: RRR, no murmur, no edema Gastrointestinal (Abdomen): normal bowel sounds, soft, nontender, no hepatosplenomegaly Musculoskeletal: Extremities: extremities normal to inspection Skin: no rashes, warm and dry Neurologic: Nonfocal exam Lymphatic: no cervical lymphadenopathy Results & Data Results & Data ([facility]) Vital Signs (Past 12 Hours) Vital Signs Temp Pulse Pulse Resp BP BP Pulse Ox 04/29/22 07:30 04/29/22 07:55 36.5 C 86 20 126/77 98 04/29/22 06:55 68 04/29/22 03:23 36.6 C 97 H 22 147/70 H 95 O2 Del Method O2 Flow Rate 04/29/22 07:30 Oxymask 3 04/29/22 07:55 Oxymask 3 04/29/22 06:55 04/29/22 03:23 Oxymask 3 Critical Care Results & Data Vital Signs (Past 12 Hours) Vital Signs Temp Pulse Pulse Resp BP BP Pulse Ox 04/29/22 07:30 04/29/22 07:55 36.5 C 86 20 126/77 98 04/29/22 06:55 68 04/29/22 03:23 36.6 C 97 H 22 147/70 H 95 O2 Del Method O2 Flow Rate 04/29/22 07:30 Oxymask 3 04/29/22 07:55 Oxymask 3 04/29/22 06:55 04/29/22 03:23 Oxymask 3 Lab & Micro Results (Past 24 Hours) RBC 3.89 M/uL (3.93-5.22) L 04/29/22 WBC 7.43 K/ul (4.8-10.8) 04/29/22 Hgb 12.4 g/dl (12.0-16.0) 04/29/22 Hct 37.8 % (34.1-44.9) 04/29/22 MCV 97.2 fL (80.0-100.0) 04/29/22 MCH 31.9 pg (25.0-34.0) 04/29/22 MCHC 32.8 g/dL (32.0-36.0) 04/29/22 RDW Standard Deviation 43.4 fL (36.4-46.3) 04/29/22 RDW Coefficient of Variation 12.1 % (11.5-14.5) 04/29/22 Plt Count 281 K/uL (130-400) 04/29/22 MPV 9.9 fL (9.4-12.3) 04/29/22 Na 136 mmol/L (136-145) 04/29/22 K 4.1 mmol/L (3.5-5.1) 04/29/22 Cl 96 mmol/L (98-107) L 04/29/22 CO2 37 mmol/L (21-32) H 04/29/22 Anion Gap 3 (3-11) 04/29/22 BUN 13 mg/dl (6-23) 04/29/22 Creatinine 0.45 mg/dl (0.6-1.2) L 04/29/22 Estimated GFR ( Amer) 113.6 ml/min 04/29/22 Estimated GFR (Non-Af Amer) 98.0 ml/min 04/29/22 BUN/Creatinine Ratio 28.9 (10-20) H 04/29/22 Glu 97 mg/dl (70-99(Fasting)) 04/29/22 Ca 8.1 mg/dl (8.5-10.1) L 04/29/22 AST 23 U/L (13-39) 04/29/22 ALT 16 U/L (7-52) 04/29/22 Calcium Level 8.1 mg/dl (8.5-10.1) L 04/29/22 06:08 Diagnostic Findings (Past 24 Hours) Chest x-ray 04/27/2022 was independently reviewed. Lungs are hyperinflated with emphysematous changes bilaterally. There are some hazy densities in the right lower lobe and left perihilar regions. I & O Totals 24 Hours 04/28/22 04/29/22 04/30/22 06:59 06:59 06:59 Intake Total 1303.75 / 1303.75 1844.583 / 1844.583 Output Total 200 / 200 2049 / 2049 Balance 1103.75 / 1103.75 -205.417 / -205.417 Cumulative 04/27/22 18:07 thru 04/29/22 06:00 Intake Total 3148.333 Output Total 2250 Balance 898.333 RT Ventilator Mngmt (Last Documented) Ventilator Ordered Settings Respiratory Rate 20 04/29/22 07 :55 Ventilator - PT Measurements Respiratory Rate 20 PG Care Time/CCT Total # of Minutes Spent Total Time Spent with Patient: Total time spent is greater than 50% in coordination of care (as documented) at patient's floor/unit and/or counseling patient: Coding Level of Care Code 12501 Initial Inpt Care Lvl 3 Diagnoses COPD (chronic obstructive pulmonary disease) J44.9 Hypoxemia R09.02 Pneumonia due to COVID-19 virus U07.1; J12.82
--- NOTE | 2022-04-29 15:35 | Hospitalist Progress Note ---
Date of Service April 29, 2022 Assessment & Plan (1) Acute and chronic respiratory failure: Plan: Secondary COVID-19 infection. She has a history of chronic obstructive pulmonary disease and was found to be saturating 60% at home. Chest x-ray reveals no evidence of pneumonia at this point. Patient was vaccinated but not boosted. Continues on remdesivir and Decadron. She is agitated again today and feels the steroids are contributing. Will decrease the dose in am. Has a junky cough but reports this is normal. Declines cough syrup at this time. Per pulm/ICU, she is outside the benefit window for remdesivir. Stopping this now. Cont with decadron. (2) COVID-19 virus infection: Plan: Continue isolation, plan as above. (3) Elevated troponin: Plan: Mildly elevated troponin in setting of acute illness with nonischemic EKG and no evidence of chest pain. Likely related to demand ischemia as opposed to ACS. No further cardiac work-up at this time. (4) Ambulatory dysfunction: Plan: Chronic ambulatory dysfunction, uses a walker to get around. Interested in home resources. Patient lives in more remote location in [place]. Will involve case management for assistance with resources help. (5) COPD (chronic obstructive pulmonary disease): Plan: Currently not in exacerbation. Appears rather symptomatic at baseline, uncertain how many exacerbations per year but has been hospitalized for exacerbations. Started her on umeclidinum/Vilanterol 1 puff daily to continue through discharge which may help with baseline dyspnea. Seen by pulmonology who agrees with the trial. Will cont with decadron for now, but will stop remdesivir. Updated outpatient PFTs are needed and outpatient follow-up with pulonology is recommended. (6) DVT prophylaxis: Plan: Lovenox Full code Disposition-to home pending PT/OT evaluations. Yeni Andrade DO [facility] Hospitalist Admission and Anticipated Discharge Date Admission Date: April 28, 2022 Subjective 76-year-old female with a history of COPD on chronic home oxygen presented for evaluation of shortness of breath and cough over the past couple of days secondary to COVID-19. Chest x-ray is negative for pneumonia. Patient states that she does not feel short of breath today or have any cough or any symptoms. She is very agitated at being isolated in the current room. She denies using any daily home inhalers and does not see a school resource officer for COPD. She is agitated from not having a bowel movement yet and from being uncomfortable in bed and being told she can't ambulate. She is requesting help with ambulation and typically ambulates with a walker. She has chronic numbness in her fingers and toes related to self-reported transverse myelitis, and is going through a work-up for diagnosis of possible MS. She depends on family members to provide care for her at home and is interested in resources related to home care. Chronic junky cough reported No shortness of breath or chest pain Review of Systems Review of Systems: All systems are reviewed negative except as indicated above. Physical Exam Physical Exam: CONSTITUTIONAL: WNWD, vitals as above, generally well- appearing, NAD, does appear to have some breathlessness at her baseline which causes her to stop and concentrate on her breathing. EYES: normal conjunctivae, no scleral icterus ENT: external ear and nose normal,MMM NECK: trachea midline, RESPIRATORY: min rhonchi at bases bilaterally, no rales or wheezes, normal respiratory effort, 2LPM supplemental oxygen in place. CARDIOVASCULAR: regular rate and rhythm, S1 and 2 heard without murmurs, gallops or rubs, no JVD, no peripheral edema CHEST: inspection of chest was normal GASTROINTESTINAL: soft, nontender, ND, no guarding MUSCULOSKELETAL: strength 5/5 throughout, head is normocephalic and atraumatic SKIN: warm and dry NEUROLOGIC: CN 2-12 grossly intact, no sensory deficit, normal cognition, normal speech, no tremor PSYCHIATRIC: alert cooperative and oriented to person, place and time. Results & Data Results & Data ([facility]) Vital Signs (Past 12 Hours) Vital Signs Temp Pulse Pulse Resp BP Pulse Ox O2 Del Method 04/29/22 14:52 86 04/29/22 07:30 Oxymask 04/29/22 07:55 36.5 C 86 20 126/77 98 Oxymask 04/29/22 06:55 68 O2 Flow Rate 04/29/22 14:52 04/29/22 07:30 3 04/29/22 07:55 3 04/29/22 06:55 Laboratory Results Short CBC 04/29/22 Range/Units 06:08 WBC 7.43 (4.8-10.8) K/ul Hgb 12.4 (12.0-16.0) g/dl Hct 37.8 (34.1-44.9) % Plt Count 281 (130-400) K/uL BMP 04/29/22 06:08 Sodium 136 Potassium 4.1 Chloride 96 L Carbon Dioxide 37 H BUN 13 Creatinine 0.45 L Glucose 97 Calcium 8.1 L Liver Function 04/29/22 Range/Units 06:08 AST 23 (13-39) U/L ALT 16 (7-52) U/L Medications Administered Current Inpatient Medications Acetaminophen (Acetaminophen 325 Mg Tab) 650 mg PO Q4H PRN PRN Reason: Pain or Fever Stop: 05/28/22 02:22 Last Admin: 04/29/22 09:00 Dose: 650 mg Albuterol (Albuterol Hfa 8 Gm Inhaler) 1 puffs INH QIDR PRN PRN Reason: SOB/wheezing Stop: 05/28/22 06:59 Atorvastatin Calcium (Atorvastatin 20 Mg Tab) 20 mg PO QAM ALBERTINA Stop: 05/28/22 08:59 Last Admin: 04/29/22 08:08 Dose: 20 mg Dexamethasone (Dexamethasone 4 Mg Tab) 6 mg PO DAILY ALBERTINA Stop: 05/29/22 08:59 Last Admin: 04/29/22 08:08 Dose: 6 mg Enoxaparin Sodium (Enoxaparin Inj 40 Mg/0.4 Ml Syr) 40 mg SQ Q24H ALBERTINA Stop: 05/28/22 08:59 Last Admin: 04/29/22 08:08 Dose: 40 mg Ipratropium [place] (Ipratropium [place] Neb Soln 0.02% 2.5 Ml Vial) 0.5 mg NEB Q6R PRN PRN Reason: SOB/wheezing Stop: 05/28/22 18:59 Levalbuterol HCl (Levalbuterol Hcl 1.25 Mg/3 Ml Neb) 1.25 mg NEB Q6R PRN; Protocol PRN Reason: Shortness Of Breath Or Wheezing Stop: 05/28/22 02:22 Multivitamins/Minerals (Calcium 600mg + Vit D 400 Iu Tab) 1 tab PO BID ALBERTINA Stop: 05/28/22 08:59 Last Admin: 04/29/22 08:08 Dose: 1 tab Nitroglycerin (Nitroglycerin Sl 0.4 Mg/Tab Tab) 0.4 mg SL Q5M PRN PRN Reason: Chest Pain Stop: 05/28/22 02:22 Ondansetron HCl (Ondansetron Inj 2 Mg/Ml 2 Ml Vial) 4 mg IV Q6H PRN PRN Reason: Nausea Stop: 05/28/22 02:22 Polyethylene Glycol (Polyethylene (Miralax) 17 Gm Pack) 17 gm PO DAILY PRN PRN Reason: Constipation Stop: 05/28/22 02:22 Last Admin: 04/29/22 09:00 Dose: 17 gm Umeclidinium/Vilanterol (Umeclidinium/Vilanterol 62.5/25mcg 7 Puffs/Inhaler) 1 puffs INH DAILY ALBERTINA Stop: 05/29/22 08:59 Last Admin: 04/29/22 08:08 Dose: 1 puffs (1) Acute and chronic respiratory failure Respiratory failure complication: hypoxia and hypercapnia Qualified Code(s): J96.21 - Acute and chronic respiratory failure with hypoxia; J96.22 - Acute and chronic respiratory failure with hypercapnia
[2022-04-30 07:55] LABS: Creatinine Clr Calc Pharmacy 81.7 ml/min; Est GFR (Non-African American) 94.1 ml/min
[2022-04-30] MEDS: UMECLIDINIUM/VILANTEROL 62.5/25MCG 7 PUFFS/INHALER INH SCH (08:56)
[2022-04-30] MEDS: ATORVASTATIN 20 MG TAB PO SCH (08:56)
[2022-04-30] MEDS: CALCIUM 600MG + VIT D 400 IU TAB PO SCH ×2 (08:56→22:08)
[2022-04-30] MEDS: ENOXAPARIN INJ 40 MG/0.4 ML SYR SQ SCH (08:57)
[2022-04-30] MEDS ORDERED: dexAMETHasone 4 MG TAB PO SCH (09:00)
--- NOTE | 2022-04-30 12:04 | Pulmonology Progress Note ---
Date of Service April 30, 2022 Assessment & Plan (1) COPD (chronic obstructive pulmonary disease): (2) Hypoxemia: (3) Pneumonia due to COVID-19 virus: Plan Impression: 76-year-old female with history of advanced emphysema and chronic hypoxemic and hypercarbic respiratory failure admitted with positive COVID test and worsening hypoxemia. She reports that her oxygenation and breathing are at her baseline currently. Recommendations: 1. Advanced COPD: The patient clinically has cachexia and conversational dyspnea. She says this is her baseline. I suspect she has advanced COPD. Continue Anoro and use as needed duo nebs. Could consider chronic azithromycin therapy depending on clinical response. PT and OT in process. Unclear if the patient can go home. Given the severity of her symptoms, palliative care would definitely be appropriate. 2. COVID infection: Difficult to ascertain how much of the patient's issues are chronic and what is acute. Technically she meets criteria for Decadron based on an oxygen saturation below 94% however this likely represents her baseline level. Her oxygenation is back at her baseline and consideration for tapering her Decadron or discontinuing it would be appropriate. As this was initiated by the primary service, will defer to them. 3. Hypoxemic respiratory failure: This is due to COPD with VQ mismatch as well as chronic hypercarbia. Her venous blood gas showed a pH of 7.39 with a CO2 elevated at 70. She may benefit from nocturnal trilogy in the outpatient setting. Do not think she needs BiPAP currently. 4. Discussed advanced directives with the patient. She states she would not want to be on a ventilator or intubated and she would not want CPR in the event of a cardiac arrest. Her CODE STATUS will be updated to DO NOT INTUBATE DO NOT RESUSCITATE. 5. Management of the patient's other medical issues is deferred to the admitting hospitalist. Thanks for the opportunity participating in the care of this patient. We will follow with you. Feel free to contact us with questions Admission and Anticipated Discharge Date Admission Date: April 28, 2022 Subjective Patient seen and examined. EMR reviewed. She is awake alert and conversant. She continues to exhibit conversational dyspnea but she feels that she is at her baseline. She is coughing but unable to expectorate phlegm. She states she gets that up and then swallows it back down. She is not noted any wheezing. She is not complaining of any chest tightness. No fevers chills or night sweats. She states that she was able to get up and ambulate to the restroom. She lives independently and has family come in and assist. Review of Systems Review of Systems: All systems reviewed & are unremarkable except as noted in Subjective Physical Exam Constitutional: WD/WN, vitals as above + cachectic and + frail appearing Neck: trachea midline, no thyromegaly Respiratory: normal respiratory effort, lungs clear to auscultation + labored breathing and + tachypneic Auscultation: no crackles and no wheezes Cardiovascular: RRR, no murmur, no edema Gastrointestinal (Abdomen): normal bowel sounds, soft, nontender, no hepatosplenomegaly Musculoskeletal: Extremities: extremities normal to inspection Skin: no rashes, warm and dry Lymphatic: no cervical lymphadenopathy Results & Data Results & Data ([facility]) Vital Signs (Past 12 Hours) Vital Signs Temp Pulse Resp BP Pulse Ox O2 Del Method O2 Flow Rate 04/30/22 09:02 Nasal Cannula 3 04/30/22 08:22 36.5 C 94 H 17 131/83 90 Oxymask 3 04/30/22 04:27 36.5 C 76 24 131/74 96 Oxymask 3 Laboratory Results 04/29/22 06:08 04/30/22 06:50 Diagnostic Findings No new imaging PG Care Time/CCT Total # of Minutes Spent Total Time Spent with Patient: Total time spent is greater than 50% in coordination of care (as documented) at patient's floor/unit and/or counseling patient: Coding Level of Care Code 35251 Subseq Hosp Care Lvl 3 Diagnoses COPD (chronic obstructive pulmonary disease) J44.9 Hypoxemia R09.02 Pneumonia due to COVID-19 virus U07.1; J12.82
--- NOTE | 2022-04-30 15:20 | Hospitalist Progress Note ---
Date of Service April 30, 2022 Assessment & Plan (1) Acute and chronic respiratory failure: Plan: Secondary COVID-19 infection. She has a history of chronic obstructive pulmonary disease and was found to be saturating 60% at home. Chest x-ray reveals no evidence of pneumonia at this point. Patient was vaccinated but not boosted. Decadron was stopped yesterday as she is outside the winod[place] of therapeutic benefit. DOing well on decreased dose of decadron, however, per pulm this may also be able to be stopped. Cont with Anoro inhaler and duonebs PRN (2) COVID-19 virus infection: Plan: Continue isolation, plan as above. (3) Elevated troponin: Plan: Mildly elevated troponin in setting of acute illness with nonischemic EKG and no evidence of chest pain. Likely related to demand ischemia as opposed to ACS. No further cardiac work-up at this time. (4) Ambulatory dysfunction: Plan: Chronic ambulatory dysfunction, uses a walker to get around. Interested in home resources. Patient lives in more remote location in [place]. Will involve case management for assistance with resources help. Still awaiting formal evaluation by PT and OT to determine need. (5) COPD (chronic obstructive pulmonary disease): Plan: Currently not in exacerbation. Appears rather symptomatic at baseline; she denies being hospitalized for her breathing in the last couple of years. Started her on umeclidinum/Vilanterol 1 puff daily to continue through discharge which may help with baseline dyspnea. Seen by pulmonology who agrees with the trial. Updated outpatient PFTs are needed and outpatient follow-up with pulmonology is recommended. (6) DVT prophylaxis: Plan: Lovenox Full code Disposition-to home pending PT/OT evaluations. [facility] Admission and Anticipated Discharge Date Admission Date: April 28, 2022 Subjective 76-year-old female with a history of COPD on chronic home oxygen presented for evaluation of shortness of breath and cough over the past couple of days secondary to COVID-19. She continues to appear breathless and have conversational dyspnea but states this is her baseline No worsened symptoms of cough or SOB reported today--states her cough is her chronic cough that she deals with She was shaking her head about the Anoro inhaler and saying she wasn't sure this was working Explained to her the effect will not be immediate and she will need to wait weeks before seeing any effect Discussed her getting PFTs and a pulmonolgist and she states that she simply cannot get to any doctors appts for various reasons Has family but states that she is alone most of the time Reports being mostly wheelchair bound but apparently can use a walker for short distances Still awaiting formal evaluation by therapy. Review of Systems Review of Systems: All systems were reviewed and negative except as indicated on subjective above. Physical Exam Physical Exam: CONSTITUTIONAL: WNWD, vitals as above, generally well- appearing, NAD, does appear to have some breathlessness at her baseline which causes her to stop and concentrate on her breathing. EYES: normal conjunctivae, no scleral icterus ENT: external ear and nose normal,MMM NECK: trachea midline, RESPIRATORY: diminished breath sounds at bases, no rales or wheezes, normal respiratory effort, supplemental oxygen in place. CARDIOVASCULAR: regular rate and rhythm, S1 and 2 heard without murmurs, gallops or rubs, no JVD, no peripheral edema CHEST: inspection of chest was normal GASTROINTESTINAL: soft, nontender, ND, no guarding MUSCULOSKELETAL: strength 5/5 throughout, head is normocephalic and atraumatic SKIN: warm and dry NEUROLOGIC: CN 2-12 grossly intact, no sensory deficit, normal cognition, normal speech, no tremor PSYCHIATRIC: alert cooperative and oriented to person, place and time. Results & Data Results & Data ([facility]) Vital Signs (Past 12 Hours) Vital Signs Temp Pulse Pulse Resp BP Pulse Ox O2 Del Method 04/30/22 08:00 74 04/30/22 15:04 87 04/30/22 09:02 Nasal Cannula 04/30/22 08:22 36.5 C 94 H 17 131/83 90 Oxymask 04/30/22 04:27 36.5 C 76 24 131/74 96 Oxymask O2 Flow Rate 04/30/22 08:00 04/30/22 15:04 04/30/22 09:02 3 04/30/22 08:22 3 04/30/22 04:27 3 Laboratory Results BMP 04/30/22 06:50 Creatinine 0.51 L Liver Function 04/30/22 Range/Units 06:50 AST 22 (13-39) U/L ALT 15 (7-52) U/L Medications Administered Current Inpatient Medications Acetaminophen (Acetaminophen 325 Mg Tab) 650 mg PO Q4H PRN PRN Reason: Pain or Fever Stop: 05/28/22 02:22 Last Admin: 04/29/22 09:00 Dose: 650 mg Albuterol (Albuterol Hfa 8 Gm Inhaler) 1 puffs INH QIDR PRN PRN Reason: SOB/wheezing Stop: 05/28/22 06:59 Atorvastatin Calcium (Atorvastatin 20 Mg Tab) 20 mg PO QAM ALBERTINA Stop: 05/28/22 08:59 Last Admin: 04/30/22 08:56 Dose: 20 mg Dexamethasone (Dexamethasone 4 Mg Tab) 4 mg PO DAILY ALBERTINA Stop: 05/30/22 08:59 Last Admin: 04/30/22 08:56 Dose: 4 mg Enoxaparin Sodium (Enoxaparin Inj 40 Mg/0.4 Ml Syr) 40 mg SQ Q24H ALBERTINA Stop: 05/28/22 08:59 Last Admin: 04/30/22 08:57 Dose: 40 mg Ipratropium [place] (Ipratropium [place] Neb Soln 0.02% 2.5 Ml Vial) 0.5 mg NEB Q6R PRN PRN Reason: SOB/wheezing Stop: 05/28/22 18:59 Levalbuterol HCl (Levalbuterol Hcl 1.25 Mg/3 Ml Neb) 1.25 mg NEB Q6R PRN; Protocol PRN Reason: Shortness Of Breath Or Wheezing Stop: 05/28/22 02:22 Multivitamins/Minerals (Calcium 600mg + Vit D 400 Iu Tab) 1 tab PO BID ALBERTINA Stop: 05/28/22 08:59 Last Admin: 04/30/22 08:56 Dose: 1 tab Nitroglycerin (Nitroglycerin Sl 0.4 Mg/Tab Tab) 0.4 mg SL Q5M PRN PRN Reason: Chest Pain Stop: 05/28/22 02:22 Ondansetron HCl (Ondansetron Inj 2 Mg/Ml 2 Ml Vial) 4 mg IV Q6H PRN PRN Reason: Nausea Stop: 05/28/22 02:22 Polyethylene Glycol (Polyethylene (Miralax) 17 Gm Pack) 17 gm PO DAILY PRN PRN Reason: Constipation Stop: 05/28/22 02:22 Last Admin: 04/29/22 09:00 Dose: 17 gm Umeclidinium/Vilanterol (Umeclidinium/Vilanterol 62.5/25mcg 7 Puffs/Inhaler) 1 puffs INH DAILY ALBERTINA Stop: 05/29/22 08:59 Last Admin: 04/30/22 08:56 Dose: 1 puffs (1) Acute and chronic respiratory failure Respiratory failure complication: hypoxia and hypercapnia Qualified Code(s): J96.21 - Acute and chronic respiratory failure with hypoxia; J96.22 - Acute and chronic respiratory failure with hypercapnia
[2022-05-01] MEDS: UMECLIDINIUM/VILANTEROL 62.5/25MCG 7 PUFFS/INHALER INH SCH (08:08)
[2022-05-01] MEDS: CALCIUM 600MG + VIT D 400 IU TAB PO SCH ×2 (08:08→22:20)
[2022-05-01] MEDS: ENOXAPARIN INJ 40 MG/0.4 ML SYR SQ SCH (08:08)
[2022-05-01] MEDS: ATORVASTATIN 20 MG TAB PO SCH (08:08)
--- NOTE | 2022-05-01 08:43 | XRay Report ---
XR chest 1V portable CLINICAL HISTORY: hypoxia, covid+. COMPARISON STUDY: 04/27/2022 TECHNIQUE: 1 view of the chest FINDINGS: Single frontal view of the chest demonstrates the cardiomediastinal silhouette to be within normal li mits. There is hyperinflation of the lungs with attenuation of the pulmonary vasculature peripherally characteristic of underlying chronic obstructive pulmonary disease. The lungs are clear of alveolar opacities. There is no evidence for pleural effusion. There is no evidence for vascular congestion. T here is no acute osseous pathology. IMPRESSION: 1. No acute cardiopulmonary disease. 2. Evidence for underlying COPD. ACT 112: Negative or not required by law. Electronically signed by: Brody Georges M.D. 05/01/2022 8:42 AM
[2022-05-01 09:18] LABS: Hematocrit (blood only) 41.7 % (34.1-44.9); Mean Corpuscular Hemoglobin 32.1 pg (25.0-34.0); Mean Corpuscular Hgb Conc 33.6 g/dL (32.0-36.0); Mean Corpuscular Volume 95.6 fL (80.0-100.0); Mean Platelet Volume 9.8 fL (9.4-12.3); Platelet Count 363 K/uL (130-400); RDW Coefficient of Variation 12.1 % (11.5-14.5); RDW Standard Deviation 42.7 fL (36.4-46.3); Red Blood Count 4.36 M/uL (3.93-5.22); White Blood Count 12.37 K/ul (4.8-10.8)
[2022-05-01 09:42] LABS: BUN Creatinine Ratio 25.5 (10-20); Calcium 8.3 mg/dl (8.5-10.1); Creatinine Clr Calc Pharmacy 75.8 ml/min; Est GFR (African American) 106.3 ml/min; Est GFR (Non-African American) 91.8 ml/min; Potassium 3.9 mmol/L (3.5-5.1)
--- NOTE | 2022-05-01 10:18 | Hospitalist Progress Note ---
Date of Service May 01, 2022 Assessment & Plan (1) Acute and chronic respiratory failure: Plan: Secondary COVID-19 infection. She has a history of chronic obstructive pulmonary disease and was found to be saturating 60% at home. Chest x-ray reveals no evidence of pneumonia at this point. Patient was vaccinated but not boosted. Decadron was stopped 04/30 as she is outside the window of therapeutic benefit. Cont with Anoro inhaler and duonebs PRN. Pulm also added fluticasone inhaler today. Cont to monitor for any worsening hypoxemia and if stable, will plan for discharge in am. (2) COVID-19 virus infection: Plan: Continue isolation for at least 10 days beyond when symptoms began, plan as above. (3) Elevated troponin: Plan: Mildly elevated troponin in setting of acute illness with nonischemic EKG and no evidence of chest pain. Likely related to demand ischemia as opposed to ACS. No further cardiac work-up at this time. (4) Ambulatory dysfunction: Plan: Chronic ambulatory dysfunction, uses a walker to get around. Interested in home resources. Patient lives in more remote location in [place]. Will involve case management for assistance with resources help. PT/OT state ok to return home. Home health for PT and OT and to have nurse assess that she is tolerating the inhalers and new medications may be helpful. (5) COPD (chronic obstructive pulmonary disease): Plan: Currently not in exacerbation. Appears rather symptomatic at baseline; she denies being hospitalized for her breathing in the last couple of years. Started her on umeclidinum/Vilanterol 1 puff daily to continue through discharge which may help with baseline dyspnea. Seen by pulmonology who agrees with the trial. Updated outpatient PFTs are needed and outpatient follow-up with pulmonology is recommended. Fluticasone (Arnuity Ellipta) added today. (6) Acute exacerbation of chronic low back pain: Plan: Pt reports using Ibuprofen regularly. Protonix was started prophylactically and she was given scheduled Tylenol and Ibuprofen as needed. Will monitor. (7) DVT prophylaxis: Plan: Lovenox Full code Disposition-to home tomorrow. Appreciate CM assistance with DME for needs at home she may not have and with setting up home health. Yeni Andrade DO [facility] Hospitalist Admission and Anticipated Discharge Date Admission Date: April 28, 2022 Subjective 76-year-old female with a history of COPD on chronic home oxygen presented for evaluation of shortness of breath and cough over the past couple of days secondary to COVID-19. breathing appears easier today she endorses handling the inhalers without issue so far ambulated with PT and OT who feel she can return home noted lower oxygen levels today and repeat CXR clear of pneumonia Patient declines any additional steroids at this time We discussed her returning home tomorrow. She would still like to speak with the certified financial planner prior to going Review of Systems Review of Systems: All systems were reviewed and negative except as indicated on subjective above. Physical Exam Physical Exam: CONSTITUTIONAL: WNWD, vitals as above, generally well- appearing, NAD, does appear to have some breathlessness at her baseline which causes her to stop and concentrate on her breathing. EYES: normal conjunctivae, no scleral icterus ENT: external ear and nose normal,MMM NECK: trachea midline, RESPIRATORY: diminished breath sounds at bases but air movement has improved, no rales or wheezes, normal respiratory effort, supplemental oxygen in place. CARDIOVASCULAR: regular rate and rhythm, S1 and 2 heard without murmurs, gallops or rubs, no JVD, no peripheral edema CHEST: inspection of chest was normal GASTROINTESTINAL: soft, nontender, ND, no guarding MUSCULOSKELETAL: strength 5/5 throughout, head is normocephalic and atraumatic SKIN: warm and dry NEUROLOGIC: CN 2-12 grossly intact, no sensory deficit, normal cognition, normal speech, no tremor PSYCHIATRIC: alert cooperative and oriented to person, place and time. Results & Data Results & Data ([facility]) Vital Signs (Past 12 Hours) Vital Signs Temp Pulse Resp BP Pulse Ox Pulse Ox O2 Del Method 05/01/22 09:34 Oxymask 05/01/22 05:33 36.7 C 82 22 142/95 H 90 Oxymask 05/01/22 05:15 94 H 28 H 73 L Oxymask 05/01/22 01:49 97 05/01/22 01:29 Oxymask O2 Del Method O2 Flow Rate O2 Flow Rate 05/01/22 09:34 3 05/01/22 05:33 2 05/01/22 05:15 2 05/01/22 01:49 Oxymask 2 05/01/22 01:29 2 Laboratory Results Short CBC 05/01/22 Range/Units 07:51 WBC 12.37 H (4.8-10.8) K/ul Hgb 14.0 (12.0-16.0) g/dl Hct 41.7 (34.1-44.9) % Plt Count 363 (130-400) K/uL BMP 05/01/22 07:51 Sodium 134 L Potassium 3.9 Chloride 92 L Carbon Dioxide 36 H BUN 14 Creatinine 0.55 L Glucose 85 Calcium 8.3 L Liver Function 05/01/22 Range/Units 07:51 AST 24 (13-39) U/L ALT 18 (7-52) U/L Diagnostic Findings Chest X-Ray 05/01/22 08:14 XR chest 1V portable CLINICAL HISTORY: hypoxia, covid+. COMPARISON STUDY: 04/27/2022 TECHNIQUE: 1 view of the chest FINDINGS: Single frontal view of the chest demonstrates the cardiomediastinal silhouette to be within normal limits. There is hyperinflation of the lungs with attenuation of the pulmonary vasculature peripherally characteristic of underlying chronic obstructive pulmonary disease. The lungs are clear of alveolar opacities. There is no evidence for pleural effusion. There is no evidence for vascular congestion. There is no acute osseous pathology. IMPRESSION: 1. No acute cardiopulmonary disease. 2. Evidence for underlying COPD. ACT 112: Negative or not required by law. Electronically signed by: Brody Georges M.D. 05/01/2022 8:42 AM Medications Administered Current Inpatient Medications Acetaminophen (Acetaminophen 325 Mg Tab) 650 mg PO Q4H PRN PRN Reason: Pain or Fever Stop: 05/28/22 02:22 Last Admin: 04/29/22 09:00 Dose: 650 mg Albuterol (Albuterol Hfa 8 Gm Inhaler) 1 puffs INH QIDR PRN PRN Reason: SOB/wheezing Stop: 05/28/22 06:59 Atorvastatin Calcium (Atorvastatin 20 Mg Tab) 20 mg PO QAM ALBERTINA Stop: 05/28/22 08:59 Last Admin: 05/01/22 08:08 Dose: 20 mg Enoxaparin Sodium (Enoxaparin Inj 40 Mg/0.4 Ml Syr) 40 mg SQ Q24H ALBERTINA Stop: 05/28/22 08:59 Last Admin: 05/01/22 08:08 Dose: 40 mg Ipratropium [place] (Ipratropium [place] Neb Soln 0.02% 2.5 Ml Vial) 0.5 mg NEB Q6R PRN PRN Reason: SOB/wheezing Stop: 05/28/22 18:59 Levalbuterol HCl (Levalbuterol Hcl 1.25 Mg/3 Ml Neb) 1.25 mg NEB Q6R PRN; Protocol PRN Reason: Shortness Of Breath Or Wheezing Stop: 05/28/22 02:22 Multivitamins/Minerals (Calcium 600mg + Vit D 400 Iu Tab) 1 tab PO BID [facility] Stop: 05/28/22 08:59 Last Admin: 05/01/22 08:08 Dose: 1 tab Nitroglycerin (Nitroglycerin Sl 0.4 Mg/Tab Tab) 0.4 mg SL Q5M PRN PRN Reason: Chest Pain Stop: 05/28/22 02:22 Ondansetron HCl (Ondansetron Inj 2 Mg/Ml 2 Ml Vial) 4 mg IV Q6H PRN PRN Reason: Nausea Stop: 05/28/22 02:22 Polyethylene Glycol (Polyethylene (Miralax) 17 Gm Pack) 17 gm PO DAILY PRN PRN Reason: Constipation Stop: 05/28/22 02:22 Last Admin: 04/29/22 09:00 Dose: 17 gm Umeclidinium/Vilanterol (Umeclidinium/Vilanterol 62.5/25mcg 7 Puffs/Inhaler) 1 puffs INH DAILY [facility] Stop: 05/29/22 08:59 Last Admin: 05/01/22 08:08 Dose: 1 puffs (1) Acute and chronic respiratory failure Respiratory failure complication: hypoxia and hypercapnia Qualified Code(s): J96.21 - Acute and chronic respiratory failure with hypoxia; J96.22 - Acute and chronic respiratory failure with hypercapnia
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
[2022-05-01] MEDS: IBUPROFEN 600 MG TAB PO PRN ×2 (13:22→22:24)
[2022-05-01] MEDS: ACETAMINOPHEN 500 MG TAB PO PRN (13:22)
[2022-05-01] MEDS: FLUTICASONE FUROATE 100MCG 14 PUFFS/INHALER INH SCH (13:23)
[2022-05-01] MEDS: PANTOprazole 40 MG TAB PO SCH (13:50)
[2022-05-01] MEDS: ACETAMINOPHEN 325 MG TAB PO PRN (22:24)
[2022-05-02 07:02] LABS: Hematocrit (blood only) 39.4 % (34.1-44.9); Hemoglobin 12.9 g/dl (12.0-16.0); Mean Corpuscular Hemoglobin 31.9 pg (25.0-34.0); Mean Corpuscular Hgb Conc 32.7 g/dL (32.0-36.0); Mean Corpuscular Volume 97.3 fL (80.0-100.0); Mean Platelet Volume 9.3 fL (9.4-12.3); Platelet Count 379 K/uL (130-400); RDW Coefficient of Variation 12.3 % (11.5-14.5); RDW Standard Deviation 43.8 fL (36.4-46.3); Red Blood Count 4.05 M/uL (3.93-5.22); White Blood Count 10.59 K/ul (4.8-10.8)
[2022-05-02 07:19] LABS: BUN Creatinine Ratio 26.7 (10-20); Calcium 8.1 mg/dl (8.5-10.1); Creatinine Clr Calc Pharmacy 69.4 ml/min; Est GFR (African American) 103.3 ml/min; Est GFR (Non-African American) 89.2 ml/min
[2022-05-02] MEDS: FLUTICASONE FUROATE 100MCG 14 PUFFS/INHALER INH SCH (08:17)
[2022-05-02] MEDS: UMECLIDINIUM/VILANTEROL 62.5/25MCG 7 PUFFS/INHALER INH SCH (08:17)
[2022-05-02] MEDS: ACETAMINOPHEN 500 MG TAB PO PRN (09:12)
[2022-05-02] MEDS: IBUPROFEN 600 MG TAB PO PRN (09:12)
[2022-05-02] MEDS: PANTOprazole 40 MG TAB PO SCH (09:13)
[2022-05-02] MEDS: ATORVASTATIN 20 MG TAB PO SCH (09:13)
[2022-05-02] MEDS: CALCIUM 600MG + VIT D 400 IU TAB PO SCH (09:13)
[2022-05-02] MEDS: ENOXAPARIN INJ 40 MG/0.4 ML SYR SQ SCH (09:14)
--- NOTE | 2022-05-02 13:53 | Discharge Summary ---
Date of Service May 02, 2022 Principal Diagnosis Acute on chronic respiratory failure COVID-19 infection COPD Discharge Exam CONSTITUTIONAL: WNWD, vitals as above, generally well-appearing, NAD, does appear to have some breathlessness at her baseline which causes her to stop and concentrate on her breathing. EYES: normal conjunctivae, no scleral icterus ENT: external ear and nose normal,MMM NECK: trachea midline, RESPIRATORY: diminished breath sounds at bases but air movement has improved, no rales or wheezes, normal respiratory effort, supplemental oxygen in place. CARDIOVASCULAR: regular rate and rhythm, S1 and 2 heard without murmurs, gallops or rubs, no JVD, no peripheral edema CHEST: inspection of chest was normal GASTROINTESTINAL: soft, nontender, ND, no guarding MUSCULOSKELETAL: strength 5/5 throughout, head is normocephalic and atraumatic SKIN: warm and dry NEUROLOGIC: CN 2-12 grossly intact, no sensory deficit, normal cognition, normal speech, no tremor PSYCHIATRIC: alert cooperative and oriented to person, place and time. Discharge Data Allergies Allergy/AdvReac Type Severity Reaction Status Date / Time No Known Allergies Allergy Mild Verified 04/28/22 00:50 Consultations 04/27/22 21:39 ED Decision to Admit Stat 04/29/22 10:27 Consult Pulmonology Routine Hospital Course (1) Acute and chronic respiratory failure: Secondary COVID-19 infection. She has a history of chronic obstructive pulmonary disease and was found to be saturating 60% at home. Chest x-ray reveals no evidence of pneumonia at this point. Patient was vaccinated but not boosted. Decadron was stopped 04/30 as she is outside the window of therapeutic benefit. Cont with Anoro inhaler and duonebs PRN. Pulm also added fluticasone inhaler. Two step revealed an increased need for oxygen supplementation. Again no pneumonia seen on repeat CXR. She was discharged in stable condition with close primary care followup recommended. She declined additional steroids. Pulmonary followup is also recommended. (2) COVID-19 virus infection: Continue isolation for at least 10 days beyond when symptoms began, plan as above. (3) Elevated troponin: Mildly elevated troponin in setting of acute illness with nonischemic EKG and no evidence of chest pain. Likely related to demand ischemia as opposed to ACS. No further cardiac work-up at this time. (4) Ambulatory dysfunction: Chronic ambulatory dysfunction, uses a walker to get around. Interested in home resources. Patient lives in more remote location in [place]. PT/OT state ok to return home. Home health for PT and OT and to have nurse assess that she is tolerating the inhalers and new medications may be helpful. (5) COPD (chronic obstructive pulmonary disease): Currently not in exacerbation. Appears rather symptomatic at baseline; she denies being hospitalized for her breathing in the last couple of years. Started her on umeclidinum/Vilanterol 1 puff daily to continue through discharge which may help with baseline dyspnea. Seen by pulmonology who agrees with the trial. Updated outpatient PFTs are needed and outpatient follow-up with pulmonology is recommended. Fluticasone (Arnuity Ellipta) also added. (6) Acute exacerbation of chronic low back pain: Pt reports using Ibuprofen regularly. Protonix was started prophylactically and she was given scheduled Tylenol and Ibuprofen as needed. Continue protonix at discharge with ongoing chronic ibuprofen use at home. Plan I contacted her son and discussed the assessment and plan at time of discharge. He verbalized understanding with intent to comply with all recommendations. He stated that she was resistant to certain things, but he would provide support for transportation to appointments and other resources as needed. Total Time Total Time Spent Total Time Spent (In Minutes): 60 Discharge Plan Discharge Items Patient Disposition: Home - Home Health Services Reason For Visit: SOB Discharge Diagnosis: Acute on chronic respiratory failure COVID-19 infection COPD Condition on Discharge: Good Activity: Resume your previous activity Non-emergency contact: Primary Care Provider Call non-emergency contact if: you have any medication questions, your symptoms worsen, your pain is not controlled, your pain is worsening, your pain is unusual for you, your pain is concerning for you and you have a fever Follow-up/Referrals: Jazz Sellers MD [Primary Care Provider] - 05/15/22 8:20 am Diet: Heart Healthy Addtl Attending Provider Instructions: Please take all medications as instructed on discharge list below. It is recommended that you remain on home isolation for at least 10 days since your symptom onset per updated public health guidelines. After this time you should wear a mask in public if you have any persistent cough or symptoms. Please use caution around any persons who may have a suppressed immune system, and the very young or very old. Your oxygen supplementation has been increased to 3LPM at rest and 5LPM with any movement. You have been given a prescription for new inhalers for COPD that should be taken regularly. Please continue to use your nebulizer for rescue as needed. Home health has been ordered to continue with physical and occupational therapy and for nursing care in the short term. It is recommended that you establish care with a replenishment specialist who can h elp you with your COPD and breathing. There is a [facility] provider who goes to the [place], [place] area once weekly who could see you. This was the group who saw you while you were admitted to the hospital. Please follow-up with your primary care provider within one week of discharge from the hospital to discuss medication changes and referral to pulmonology. It was a pleasure taking care of you! Please call if you have any questions or problems. You can reach a [facility] hospitalist on duty at [facility] 24 hours a day by calling [phone]. Take care of yourself. Yeni Andrade, DO [facility] Center[facility] Pending Studies at Discharge: No Stand-Alone Forms: My [facility] Medications and DC Order Prescriptions: New Anoro Ellipta 62.5-25 mcg/actuation Blister With Device 1 ea inhalation DAILY Qty: 60 0RF Arnuity Ellipta 100 mcg/actuation Blister With Device 1 inh inhalation QAM Qty: 30 0RF pantoprazole 40 mg Tablet,Delayed Release (Dr/Ec) 40 mg PO QAM Qty: 30 0RF Continued atorvastatin 20 mg tablet 1 tab PO DAILY albuterol sulfate 2.5 mg /3 mL (0.083 %) Solution For Nebulization 0 mg INHALATION Q4H PRN (Reason: Shortness Of Breath Or Wheezing) acetaminophen [Tylenol Extra Strength] 500 mg Tablet 500 mg PO Q6H PRN (Reason: Pain) cholecalciferol (vitamin D3) [Vitamin D3] 125 mcg (5,000 unit) Tablet 125 mcg PO 2XWK Rx Instructions: wesu ibuprofen 200 mg Tablet 400 mg PO Q6H PRN (Reason: Pain) Discharge Orders: Discharge Order (Routine); Ordered 05/02/22 Ordered By: Yeni Vincent/Other Patient Handouts: COVID-19 Home Care Admission Data Admit Date/Time: 04/28/22 00:09 Attending Provider: Yeni Andrade Admit Provider: Aleksandar Ashby Primary Care Provider: Jazz Sellers Other Providers: Aleksandar Ashby ; Marcel Cabral Other Interventions: Discharge Summary Assessment (RN) Last Done: 05/02/22 14:00
== END 2022-05-02 15:58 | disposition home health service (06) | DRG 177 ==
LOC: ED 18:18 → 2N 04-28 00:09

== ENCOUNTER 2022-10-13 17:56 | Inpatient (IN) ==
[2022-10-13] MEDS ORDERED: methylPREDNISolone 125 MG/2 ML VIAL IV STA (18:06)
[2022-10-13] MEDS ORDERED: SODIUM CHLORIDE 0.9% 500 ML IV STA (18:06)
[2022-10-13] MEDS ORDERED: ALBUT/IPRATROP 3MG/0.5MG NEB 3 ML VIAL INH STA (18:06)
--- NOTE | 2022-10-13 18:10 | Emergency Department Note ---
Impression & Plan Hypoxia ADMIT ED Provider Note HPI: The patient is a 77-year-old female with history of COPD, on supplemental oxygen, presents the emergency department with generalized weakness and fever from home. On arrival the patient displays increased work of breathing, she remains hypoxic at 88% despite nasal cannula oxygen therefore BiPAP was ordered shortly after arrival. Patient has conversational dyspnea, states she generally just has not felt well, states she has had some nausea and vomiting over the past day. Patient denies any chest pain, states that she does not feel short of breath despite her presenting vital signs. ROS: -Pulmonary: Shortness of breath/respiratory distress -GI: Nausea and vomiting *10 point review systems was conducted and is otherwise negative unless stated above *Outpatient medications and allergy history reviewed PE: General: Alert cachectic appearing, respiratory distress HEENT: Normocephalic, trachea midline Eyes: Extraocular eye movement is intact, no scleral erythema Pulmonary: Diminished air movement bilaterally without wheezing or crackles Cardio: Regular rate and rhythm GI: Abdomen is soft, nontender : No suprapubic tenderness MSK: No evidence of trauma or malformation of the extremities, no edema Skin: No evidence of rash Neuro: Alert, no focal deficits Psychiatric: Cooperative playground monitor: - An order was placed for continuous cardiac monitoring - Patient was noted to be in sinus rhythm with a rate of 105 EKG: Rate: 102 Rhythm: Sinus tachycardia Intervals: Within normal limits ST changes: No ST elevation Time: 1800 Interventions provided in ED: -DuoNeb, Solu-Medrol, IV fluid bolus Medical Decision Making: Patient presented to the emergency department with weakness, fever reported at home, hypoxia on arrival despite 4 L nasal cannula oxygen. Patient was placed on BiPAP after my initial assessment. IV established and lab work obtained, patient was placed on cardiac rn. Viral panel testing was sent and patient is positive for influenza A. Chest x-ray does not show any obvious pneumonia per my interpretation, CT imaging of the abdomen pelvis is suggestive of possi ble right-sided pyelitis with chronic irritation from a right-sided nonobstructing stone in the right extrarenal pelvis. Urinalysis is consistent with infection, patient was started on IV ceftriaxone. Lab work otherwise does not show any evidence of leukocytosis, there is some baseline worsening of hyponatremia to 127 today. Patient was given a small IV fluid bolus in the ED. Blood pressure is stable. Patient was weaned off BiPAP , on my reassessment she is stable on her baseline 2.5 L nasal cannula oxygen. I discussed all of the above with the patient and her daughter at the bedside, given her presenting hypoxia, influenza A infection, and urinary tract infection with pyelitis, she will be started on IV antibiotics and admitted to the hospitalist service. Case was discussed with the on-call hospitalist, Dr. Nash, patient was admitted in stable condition for further care. Critical care time: 35 minutes -Stabilization of hypoxia with oxygen saturations less than 90% on 4 L nasal cannula oxygen requiring BiPAP for improvement, time spent at the bedside, interpretation of diagnostic studies, arrangement of admission Diagnosis: 1. Hypoxia, acute 2. Urinary tract infection, acute 3. Influenza A infection 4. Hyponatremia, acute on chronic Disposition: Admission Advised outpatient follow up that was discussed with the patient: - Return to the ED immediately with any new or worsening symptoms - Follow up with a PCP in 2-3 Days Truman Rdz DO Emergency Medicine Past Med/Surg History Medical History Chronic respiratory failure COPD (chronic obstructive pulmonary disease) Subclavian artery stenosis, left Family History Other Family history non-contributory Social History Smoking Status: Former smoker Hx Alcohol Use: No Hx Substance Use: No Preferred Language: Ukrainian Communication Ability: Effective Current Living Situation: Family Feels Safe at Home: Yes Assistive Devices: Walker and Wheelchair Allergies Allergies Allergy/AdvReac Type Severity Reaction Status Date / Time No Known Allergies Allergy Mild Verified 04/28/22 00:50 Home Meds Home Medications Medication Instructions Recorded Confirmed acetaminophen 500 mg tablet 500 mg PO Q6H PRN Pain 04/28/22 04/28/22 (Tylenol Extra Strength) albuterol sulfate 2.5 mg/3 mL 0 mg inhalation Q4H PRN Shortness 04/28/22 04/28/22 (0.083 %) solution for nebulization Of Breath Or Wheezing atorvastatin 20 mg tablet 1 tab PO DAILY 04/28/22 04/28/22 cholecalciferol (vitamin D3) 125 125 mcg PO 2XWK 04/28/22 04/28/22 mcg (5,000 unit) tablet (Vitamin D3) ibuprofen 200 mg tablet 400 mg PO Q6H PRN Pain 04/28/22 04/28/22 Previous Rx's Medication Instructions Recorded fluticasone furoate 100 1 inh inhalation QAM #30 ea 05/02/22 mcg/actuation blister powder for inhalation (Arnuity Ellipta) pantoprazole 40 mg tablet,delayed 40 mg PO QAM #30 tabs 05/02/22 release umeclidinium 62.5 mcg-vilanterol 1 ea inhalation DAILY #60 ea 05/02/22 25 mcg/actuation powdr for inhalation (Anoro Ellipta) Results & Data (ED) Vital Signs Vital Signs - 24 hr 10/13/22 18:09 10/13/22 18:20 10/13/22 18:20 Temperature Temperature Source Pulse Rate 96 H Pulse Rate [Apical] 96 H Respiratory Rate 23 23 Respiratory Effort / Characteristics Spontaneous Spontaneous Respiratory Depth Normal Respiratory Pattern Regular Blood Pressure Blood Pressure [Left Arm] Blood Pressure Mean Blood Pressure Mean [Left Arm] Pulse Oximetry 96 97 97 Oxygen Delivery Method Nasal Cannula BiPAP Oxygen Flow Rate 2.5 Fraction of Inspired Oxygen 40 40 Sepsis New/Unexplained Change in Mental Status Sepsis Action Taken by Nursing 10/13/22 18:21 10/13/22 18:21 10/13/22 18:54 Temperature 36.4 C L Temperature Source Axillary Pulse Rate 102 H 107 H Pulse Rate [Apical] 102 H Respiratory Rate 22 22 20 Respiratory Effort / Characteristics Non-Labored Spontaneous Respiratory Depth Normal Respiratory Pattern Regular Blood Pressure 141/84 H Blood Pressure [Left Arm] Blood Pressure Mean 103 Blood Pressure Mean [Left Arm] Pulse Oximetry 96 95 93 Oxygen Delivery Method Room Air BiPAP Oxygen Flow Rate 2.5 Fraction of Inspired Oxygen Sepsis New/Unexplained Change in Mental Status No Sepsis Action Taken by Nursing Physician Notified 10/13/22 20:00 Temperature Temperature Source Pulse Rate Pulse Rate [Apical] 112 H Respiratory Rate 18 Respiratory Effort / Characteristics Respiratory Depth Respiratory Pattern Blood Pressure Blood Pressure [Left Arm] 141/64 H Blood Pressure Mean Blood Pressure Mean [Left Arm] 89 Pulse Oximetry 92 Oxygen Delivery Method Oxygen Flow Rate Fraction of Inspired Oxygen Sepsis New/Unexplained Change in Mental Status Sepsis Action Taken by Nursing Laboratory Data Result diagrams: 10/13/22 18:05 10/13/22 18:05 Lab Results 10/13/22 10/13/22 10/13/22 Range/Units 18:05 18:05 18:05 WBC 10.23 (4.8-10.8) K/ul RBC 4.67 (3.93-5.22) M/uL Hgb 15.5 (12.0-16.0) g/dl Hct 43.1 (34.1-44.9) % MCV 92.3 (80.0-100.0) fL MCH 33.2 (25.0-34.0) pg MCHC 36.0 (32.0-36.0) g/dL RDW Std Deviation 45.3 (36.4-46.3) fL RDW Coeff of Usman 13.2 (11.5-14.5) % Plt Count 414 H (130-400) K/uL MPV 8.9 L (9.4-12.3) fL Immature Gran % (Auto) 0.9 % Neut % (Auto) 89.3 % Lymph % (Auto) 7.0 % [place] % (Auto) 2.6 % Eos % (Auto) 0.0 % Baso % (Auto) 0.2 % Neut # (Auto) 9.13 H (1.4-6.5) K/uL Lymph # (Auto) 0.72 L (1.2-3.4) K/uL [place] # (Auto) 0.27 (0.24-0.82) K/uL Eos # (Auto) 0.00 (0-0.50) K/uL Baso # (Auto) 0.02 (0-0.2) K/uL Immature Gran # (Auto) 0.09 H (0.00-0.02) K/uL VBG pH (7.36-7.41) VBG pCO2 (38-50) mmHg VBG pO2 mmHg VBG HCO3 mmol/L VBG O2 Saturation % VBG Base Excess mEq/L Sodium 127 L (136-145) mmol/L Potassium 4.1 (3.5-5.1) mmol/L Chloride 84 L (98-107) mmol/L Carbon Dioxide 37 H (21-32) mmol/L Anion Gap 6 (3-11) BUN 14 (6-23) mg/dl Creatinine 0.52 L (0.6-1.2) mg/dl Est Cr Clr Drug Dosing 78.5 ml/min Est GFR ( Amer) 107.6 ml/min Est GFR (Non-Af Amer) 92.8 ml/min BUN/Creatinine Ratio 26.9 H (10-20) Glucose 160 H (70-99(Fasting)) mg/dl Calcium 9.8 (8.5-10.1) mg/dl Total Bilirubin 0.5 (0.2-1.0) mg/dl AST 26 (13-39) U/L ALT 28 (7-52) U/L Alkaline Phosphatase 69 (34-104) U/L Troponin I High Sens 24.8 H (0-14) pg/ml B-Natriuretic Peptide 102 H (0-100) pg/ml Total Protein 6.6 (6.0-8.3) gm/dl Albumin 3.3 L (3.4-5.0) gm/dl Globulin 3.3 (2.5-4.0) gm/dl Albumin/Globulin Ratio 1.0 (0.9-2) Urine Color Urine Appearance (Clear) Urine pH (4.5-7.5) Ur Specific [place] (1.000-1.030) Urine Protein (Negative) Urine Glucose (UA) (Negative) Urine Ketones (Negative) Urine Blood (Negative) Urine Nitrite (Negative) Urine Bilirubin (Negative) Urine Urobilinogen (Negative) Ur Leukocyte Esterase (Negative) Adenovirus (PCR) (NotDetected) B. pertussis DNA (PCR) (NotDetected) B.parapertussis DNA PCR (NotDetected) C. pneumoniae DNA (PCR) (NotDetected) Coronavirus OC43 (PCR) (NotDetected) Coronavirus HKU1 (PCR) (NotDetected) Coronavirus 229E (PCR) (NotDetected) SARS-CoV-2 (PCR) (NotDetected) Coronavirus NL63 (PCR) (NotDetected) Human Metapneumovir PCR (NotDetected) Influenza A (H3) PCR (NotDetected) Influenza Type B (PCR) (NotDetected) M. pneumoniae (PCR) (NotDetected) Parainfluenza 1 (PCR) (NotDetected) Parainfluenza 2 (PCR) (NotDetected) Parainfluenza 3 (PCR) (NotDetected) Parainfluenza 4 (PCR) (NotDetected) RSV (PCR) (NotDetected) Entero/Rhino (PCR) (NotDetected) 10/13/22 10/13/22 10/13/22 Range/Units 18:15 18:18 20:38 WBC (4.8-10.8) K/ul RBC (3.93-5.22) M/uL Hgb (12.0-16.0) g/dl Hct (34.1-44.9) % MCV (80.0-100.0) fL MCH (25.0-34.0) pg MCHC (32.0-36.0) g/dL RDW Std Deviation (36.4-46.3) fL RDW Coeff of Usman (11.5-14.5) % Plt Count (130-400) K/uL MPV (9.4-12.3) fL Immature Gran % (Auto) % Neut % (Auto) % Lymph % (Auto) % [place] % (Auto) % Eos % (Auto) % Baso % (Auto) % Neut # (Auto) (1.4-6.5) K/uL Lymph # (Auto) (1.2-3.4) K/uL [place] # (Auto) (0.24-0.82) K/uL Eos # (Auto) (0-0.50) K/uL Baso # (Auto) (0-0.2) K/uL Immature Gran # (Auto) (0.00-0.02) K/uL VBG pH 7.49 H (7.36-7.41) VBG pCO2 50 (38-50) mmHg VBG pO2 97 mmHg VBG HCO3 38 mmol/L VBG O2 Saturation > 100.0 % VBG Base Excess 12.7 mEq/L Sodium (136-145) mmol/L Potassium (3.5-5.1) mmol/L Chloride (98-107) mmol/L Carbon Dioxide (21-32) mmol/L Anion Gap (3-11) BUN (6-23) mg/dl Creatinine (0.6-1.2) mg/dl Est Cr Clr Drug Dosing ml/min Est GFR ( Amer) ml/min Est GFR (Non-Af Amer) ml/min BUN/Creatinine Ratio (10-20) Glucose (70-99(Fasting)) mg/dl Calcium (8.5-10.1) mg/dl Total Bilirubin (0.2-1.0) mg/dl AST (13-39) U/L ALT (7-52) U/L Alkaline Phosphatase (34-104) U/L Troponin I High Sens (0-14) pg/ml B-Natriuretic Peptide (0-100) pg/ml Total Protein (6.0-8.3) gm/dl Albumin (3.4-5.0) gm/dl Globulin (2.5-4.0) gm/dl Albumin/Globulin Ratio (0.9-2) Urine Color [place] Urine Appearance Turbid A (Clear) Urine pH 8.0 H (4.5-7.5) Ur Specific [place] 1.008 (1.000-1.030) Urine Protein 2+ H (Negative) Urine Glucose (UA) Negative (Negative) Urine Ketones Negative (Negative) Urine Blood 3+ H (Negative) Urine Nitrite Positive A (Negative) Urine Bilirubin Negative (Negative) Urine Urobilinogen Negative (Negative) Ur Leukocyte Esterase 1+ H (Negative) Adenovirus (PCR) Not Detected (NotDetected) B. pertussis DNA (PCR) Not Detected (NotDetected) B.parapertussis DNA PCR Not Detected (NotDetected) C. pneumoniae DNA (PCR) Not Detected (NotDetected) Coronavirus OC43 (PCR) Not Detected (NotDetected) Coronavirus HKU1 (PCR) Not Detected (NotDetected) Coronavirus 229E (PCR) Not Detected (NotDetected) SARS-CoV-2 (PCR) Not Detected (NotDetected) Coronavirus NL63 (PCR) Not Detected (NotDetected) Human Metapneumovir PCR Not Detected (NotDetected) Influenza A (H3) PCR DETECTED A* (NotDetected) Influenza Type B (PCR) Not Detected (NotDetected) M. pneumoniae (PCR) Not Detected (NotDetected) Parainfluenza 1 (PCR) Not Detected (NotDetected) Parainfluenza 2 (PCR) Not Detected (NotDetected) Parainfluenza 3 (PCR) Not Detected (NotDetected) Parainfluenza 4 (PCR) Not Detected (NotDetected) RSV (PCR) Not Detected (NotDetected) Entero/Rhino (PCR) Not Detected (NotDetected) Administered Medications Discontinued Medications Albuterol (Albut/Ipratrop 3mg/0.5mg Neb 3 Ml Vial) 3 ml INH NOW STA Stop: 10/13/22 18:07 Last Admin: 10/13/22 18:15 Dose: 3 ml Documented By: REGI Sodium Chloride (Nss) 500 mls @ 999 mls/hr IV .Q31M STA Stop: 10/13/22 18:36 Last Infusion: 10/13/22 18:54 Dose: 0 mls/hr Documented By: Admin: 10/13/22 18:15 Dose: 999 mls/hr Documented By: REGI Ioversol (Optiray 350 100ml) 79 ml IV ONCE ONE Stop: 10/13/22 19:39 Last Admin: 10/13/22 19:39 Dose: 79 ml Documented By: SILVIA Methylprednisolone (Methylprednisolone 125 Mg/2 Ml Vial) 125 mg IV NOW STA Stop: 10/13/22 18:07 Last Admin: 10/13/22 18:15 Dose: 125 mg Documented By: REGI Imaging Data Radiologist's Impression: Chest X-Ray 10/13/22 18:06 XR chest 1V portable HISTORY: Dyspnea COMPARISON: Chest 04/21/2022. FINDINGS: No pneumothorax. No pleural effusions. Emphysema is again noted. No new focal lung consolidations to suggest a pneumonia. No evidence for pulmonary edema. The heart is normal in size. Slightly rotated study. Thoracic spine compression deformities are noted. [No left-sided rib fractures. IMPRESSION: 1. Emphysema. 2. Otherwise, no acute process within the chest. ACT 112: Negative or not required by law. Electronically signed by: Sky Rodgers M.D. 10/13/2022 6:39 PM Abdomen/Pelvis CT 10/13/22 18:[address] WITH IV CONTRAST CT DOSE: 226.49 mGy.cm HISTORY: nausea and vomiting, fever TECHNIQUE: Multiaxial CT images of the abdomen and pelvis were performed following the use of intravenous contrast. A dose lowering technique was utilized adhering to the principles of ALARA. COMPARISON STUDY: Chest abdomen and pelvis CTA 08/13/2016. FINDINGS: There is chronic collapse of the right lower lobe with opacified right lower lobe bronchi. This is similar to the 2016 examination. There is a trace right pleural effusion. The tree-in-bud nodular opacities with partial opacification of the left lower lobe bronchi is also similar to the prior study. Findings could represent chronic aspiration. Emphysema again noted at the lung bases. No pneumoperitoneum. No pneumatosis. There is a left total arthroplasty. There are old, healed bilateral pubic ring fractures. Multiple old mild superior endplate compression deformities within the lower thoracic and lumbar spine. There is an 8 mm hypodense lesion within the left hepatic lobe. This is technically too small to characterize. The main portal vein is patent. Cholelithiasis. No gallbladder wall thickening. The pancreas, spleen, and adrenal glands are within normal limits. A few subcentimeter hypodense left renal lesions are too small to characterize but favor cysts. There is a right extrarenal pelvis. This remains unchanged. There is a 9 mm stone layering within the right extrarenal pelvis. There is a 4 mm stone within the lower pole of the right kidney. Mild urothelial thickening within the right renal pelvis. This could be due to chronic irritation from the stone or a pyelitis. Recommend correlation with urinalysis. A few bladder diverticula are noted. No significant bladder wall thickening. No hydronephrosis. No retroperitoneal or pelvic lymphadenopathy. Moderate calcified plaque within the normal caliber abdominal aorta. No pelvic free fluid. The uterus and adnexa are unremarkable. Colonic diverticulosis. No evidence for acute diverticulitis. No bowel wall thickening or obstruction. IMPRESSION: 1. No bowel wall thickening or obstruction. 2. Colonic diverticulosis. No evidence for acute diverticulitis. 3. Cholelithiasis. No gallbladder wall thickening. 4. Right-sided nephrolithiasis. No ureteral stones. No hydronephrosis. 4. Mild urothelial thickening within the right extrarenal pelvis which could be due to chronic irritation from the 9 mm nonobstructing stone. Recommend correlation with urinalysis to exclude a pyelitis. 5. There is chronic collapse of the right lower lobe with opacified right lower lobe bronchi. This is similar to the 2016 examination. There is a trace right pleural effusion. The tree-in-bud nodular opacities with partial opacification of the left lower lobe bronchi is also similar to the prior study. Findings could represent chronic aspiration. Follow-up nonemergent pulmonary consultation recommended to better assess the chronic right lower lobe collapse. ACT 112: Positive. There are findings on this exam that require communication between the performing entity and the patient following Patient Test Result [place] Act ([place] Act 112) guidelines. Electronically signed by: Sky Rodgers M.D. 10/13/2022 8:07 PM Discharge Plan Visit Data Chief Complaint: Illness Stated Complaint: ILLNESS ED Provider: Truman Rdz Discharge Problem: Hypoxia Patient Disposition: Admitted As Inpatient Forms Stand Alone Forms: [facility] Prescriptions Prescriptions: No Action atorvastatin 20 mg tablet 1 tab PO DAILY albuterol sulfate 2.5 mg /3 mL (0.083 %) Solution For Nebulization 0 mg INHALATION Q4H PRN (Reason: Shortness Of Breath Or Wheezing) acetaminophen [Tylenol Extra Strength] 500 mg Tablet 500 mg PO Q6H PRN (Reason: Pain) cholecalciferol (vitamin D3) [Vitamin D3] 125 mcg (5,000 unit) Tablet 125 mcg PO 2XWK Rx Instructions: wesu ibuprofen 200 mg Tablet 400 mg PO Q6H PRN (Reason: Pain) Anoro Ellipta 62.5-25 mcg/actuation Blister With Device 1 ea inhalation DAILY Qty: 60 0RF Arnuity Ellipta 100 mcg/actuation Blister With Device 1 inh inhalation QAM Qty: 30 0RF pantoprazole 40 mg Tablet,Delayed Release (Dr/Ec) 40 mg PO QAM Qty: 30 0RF Referrals Referrals: Jazz Sellers MD [Primary Care Provider] -
[2022-10-13 18:20] LABS: Basophils # (auto) 0.02 K/uL (0-0.2); Basophils % (auto) 0.2 %; Hematocrit (blood only) 43.1 % (34.1-44.9); Hemoglobin 15.5 g/dl (12.0-16.0); Immature Granulocytes # (auto) 0.09 K/uL (0.00-0.02); Immature Granulocytes % (auto) 0.9 %; Lymphocytes # (auto) 0.72 K/uL (1.2-3.4); Mean Corpuscular Hemoglobin 33.2 pg (25.0-34.0); Mean Corpuscular Volume 92.3 fL (80.0-100.0); Mean Platelet Volume 8.9 fL (9.4-12.3); Monocytes # (auto) 0.27 K/uL (0.24-0.82); Monocytes % (auto) 2.6 %; Neutrophils # (auto) 9.13 K/uL (1.4-6.5); Neutrophils % (auto) 89.3 %; Platelet Count 414 K/uL (130-400); RDW Coefficient of Variation 13.2 % (11.5-14.5); RDW Standard Deviation 45.3 fL (36.4-46.3); Red Blood Count 4.67 M/uL (3.93-5.22); White Blood Count 10.23 K/ul (4.8-10.8)
[2022-10-13 18:39] LABS: Base Excess VBG 12.7 mEq/L; HCO3 VBG 38 mmol/L; Oxygen Saturation VBG > 100.0 %; PCO2 VBG 50 mmHg (38-50); PO2 VBG 97 mmHg; pH VBG 7.49 (7.36-7.41)
--- NOTE | 2022-10-13 18:40 | XRay Report ---
XR chest 1V portable HISTORY: Dyspnea COMPARISON: Chest 04/21/2022. FINDINGS: No pneumothorax. No pleural effusions. Emphysema is again noted. No new focal lung consolid ations to suggest a pneumonia. No evidence for pulmonary edema. The heart is normal in size. Slightly rotated study. Thoracic spine compression deformities are noted. [No left-sided rib fractures. IMPRESSION: 1. Emphysema. 2. Otherwise, no acute process within the chest. ACT 112: Negative or not required by law. Electronically signed by: Sky Rodgers M.D. 10/13/2022 6:39 PM
[2022-10-13 18:56] LABS: Albumin Level 3.3 gm/dl (3.4-5.0); BUN Creatinine Ratio 26.9 (10-20); Bilirubin,Total 0.5 mg/dl (0.2-1.0); Calcium 9.8 mg/dl (8.5-10.1); Creatinine Clr Calc Pharmacy 78.5 ml/min; Est GFR (African American) 107.6 ml/min; Est GFR (Non-African American) 92.8 ml/min; Globulin 3.3 gm/dl (2.5-4.0); Potassium 4.1 mmol/L (3.5-5.1); Total Protein 6.6 gm/dl (6.0-8.3)
[2022-10-13 19:00] LABS: Troponin I High Sensitivity 24.8 pg/ml (0-14)
[2022-10-13 19:20] LABS: Adenovirus PCR Not Detected (NotDetected); Bordetella parapertussis PCR Not Detected (NotDetected); Bordetella pertussis PCR Not Detected (NotDetected); Chlamydia pneumoniae PCR Not Detected (NotDetected); Coronavirus 229E PCR Not Detected (NotDetected); Coronavirus CoV-2 (COVID19)PCR Not Detected (NotDetected); Coronavirus HKU1 PCR Not Detected (NotDetected); Coronavirus NL63 PCR Not Detected (NotDetected); Coronavirus OC43PCR Not Detected (NotDetected); Human Metapneumovirus PCR Not Detected (NotDetected); Influenza B PCR Not Detected (NotDetected); Mycoplasma pneumoniae PCR Not Detected (NotDetected); Parainfluenza Virus 1 PCR Not Detected (NotDetected); Parainfluenza Virus 2 PCR Not Detected (NotDetected); Parainfluenza Virus 3 PCR Not Detected (NotDetected); Parainfluenza Virus 4 PCR Not Detected (NotDetected); Respiratory Syncytial VirusPCR Not Detected (NotDetected); Rhinovirus/Enterovirus PCR Not Detected (NotDetected)
[2022-10-13 19:22] LABS: Influenza A (H3) PCR DETECTED (NotDetected)
[2022-10-13] MEDS ORDERED: OPTIRAY 350 100ml IV ONE (19:38)
--- NOTE | 2022-10-13 20:09 | CT Scan Report ---
ABDOMEN AND PELVIS CT WITH IV CONTRAST CT DOSE: 226.49 mGy.cm HISTORY: nausea and vomiting, fever TECHNIQUE: Multiaxial CT images of the abdomen and pelvis were performed following the use of intrave nous contrast. A dose lowering technique was utilized adhering to the principles of ALARA. COMPARISON STUDY: Chest abdomen and pelvis CTA 08/13/2016. FINDINGS: There is chronic collapse of the right lower lobe with opacified right lower lobe bronchi. This is similar to the 2016 examination. There is a trace right pleural effusion. The tree-in-bud nod ular opacities with partial opacification of the left lower lobe bronchi is also similar to the prior study. Findings could represent chronic aspiration. Emphysema again noted at the lung bases. No pneu moperitoneum. No pneumatosis. There is a left total arthroplasty. There are old, healed bilateral pub ic ring fractures. Multiple old mild superior endplate compression deformities within the lower thora cic and lumbar spine. There is an 8 mm hypodense lesion within the left hepatic lobe. This is technic ally too small to characterize. The main portal vein is patent. Cholelithiasis. No gallbladder wall t hickening. The pancreas, spleen, and adrenal glands are within normal limits. A few subcentimeter hyp odense left renal lesions are too small to characterize but favor cysts. There is a right extrarenal pelvis. This remains unchanged. There is a 9 mm stone layering within the right extrarenal pelvis. Th ere is a 4 mm stone within the lower pole of the right kidney. Mild urothelial thickening within the right renal pelvis. This could be due to chronic irritation from the stone or a pyelitis. Recommend c orrelation with urinalysis. A few bladder diverticula are noted. No significant bladder wall thickeni ng. No hydronephrosis. No retroperitoneal or pelvic lymphadenopathy. Moderate calcified plaque within the normal caliber abdominal aorta. No pelvic free fluid. The uterus and adnexa are unremarkable. Co lonic diverticulosis. No evidence for acute diverticulitis. No bowel wall thickening or obstruction. IMPRESSION: 1. No bowel wall thickening or obstruction. 2. Colonic diverticulosis. No evidence for acute diverticulitis. 3. Cholelithiasis. No gallbladder wall thickening. 4. Right-sided nephrolithiasis. No ureteral stones. No hydronephrosis. 4. Mild urothelial thickening within the right extrarenal pelvis which could be due to chronic irrita tion from the 9 mm nonobstructing stone. Recommend correlation with urinalysis to exclude a pyelitis. 5. There is chronic collapse of the right lower lobe with opacified right lower lobe bronchi. This is similar to the 2016 examination. There is a trace right pleural effusion. The tree-in-bud nodular op acities with partial opacification of the left lower lobe bronchi is also similar to the prior study. Findings could represent chronic aspiration. Follow-up nonemergent pulmonary consultation recommende d to better assess the chronic right lower lobe collapse. ACT 112: Positive. There are findings on this exam that require communication between the performing entity and the patient following Patient Test Result [place] Act ([place] Act 112) guidelines. Electronically signed by: Sky Rodgers M.D. 10/13/2022 8:07 PM
[2022-10-13 21:01] LABS: Appearance Urine Turbid (Clear); Bilirubin Urine Negative (Negative); Blood Urine 3+ (Negative); Color Urine Orange; Glucose Urine UA Negative (Negative); Ketones Urine Negative (Negative); Leukocyte Esterase Urine 1+ (Negative); Nitrite Urine Positive (Negative); Specific Gravity Urine 1.008 (1.000-1.030); Urobilinogen Urine Negative (Negative)
[2022-10-13 21:03] LABS: Protein Urine 2+ (Negative)
[2022-10-13] MEDS ORDERED: cefTRIAXone SODIUM 1,000 MG in DEXTROSE 5% AD-VAN 50 ML IV STA (21:05)
[2022-10-13 21:23] LABS: Bacteria Urine Automated 1+ (Negative); RBC Urine Automated 0-4 /hpf (0-4)
--- NOTE | 2022-10-13 21:59 | History & Physical Report ---
Date of Service October 13, 2022 Assessment & Plan (1) Hypoxia: Plan Generalized weakness Likely failure to thrive Influenza A Patient has sick contact at home, reports feeling myalgia/feverish/weak since 1 week [employer]. Uses 2.5 L O2 at baseline. Patient had been lean and thin since couple of years and with poor appetite since about the same time, appetite has been poorer due to recent acute illness. Patient reports having fever of 104F when EMS measured. Influenza A positive at admission. Afebrile in the ED, WBC WNL, CXR with no acute process Nebulization, symptomatic management, incentive spirometer when possible. Isolation precaution. Dietitian consult for nutritional assessment. PT/OT when able. Complicated UTI Likely right pyelitis Patient was being treated for UTI/hematuria since 1 week [employer] [see HPI] Patient with worsening hematuria despite outpatient antibiotic. Admitting CTAP concerning for right pyelitis due to chronic irritation from 9 mm nonobstructing stone. Urine analysis suggestive of UTI, follow admitting urine culture, patient received Rocephin in the ED. Continue with Rocephin, urology consult. N.p.o. midnight until urology eval. Mild to moderate hyponatremia: Chronically mild hyponatremia, likely exacerbated due to recent decrease in her appetite, labs in a.m., continue to monitor. Low- sodium diet. Abnormal CTAP: Admitting CTAP with chronic tree-in-bud nodular opacities with partial opacification of the left lower lobe bronchi similar to prior study and chronic collapse of Rt lower lobe with opacified rt lower lobe bronchi similar to prior, nonemergent pulmonary consultation recommended. Outpatient pulm consult. DVT prophylaxis: We will do heparin subcu given history of factor V deficiency, patient with hematuria, closely monitor H&H. Full Code. History of Present Illness Chief Complaint: Weakness, flulike symptoms, hematuria Primary Care Provider: Jazz Sellers MD 77-year-old lady with PMH of transverse myelitis, multiple sclerosis, back pain, factor V deficiency, closed sacral fracture presented to our ED 10/13 due to generalized weakness and worsening hematuria. Per patient, she has been having fever since last 1 week [employer], associated with generalized weakness and even further decreased appetite on background of her already poor appetite, myalgia, had sick contact at home [granddaughter with flulike symptoms, only COVID was done and it was negative], fever of 104 recorded by EMS per patient. Patient also complains of having hematuria and urinary tract infection almost a week ago [employer], was started on an antibiotic [patient not sure of which antibiotic] with improvement/clearing of urine but was changed to ciprofloxacin 3 days ago [employer] and per patient her hematuria started to worsen since then. Per RN patient had blood clots in the urine. Afebrile in the ED, WBC WNL, patient short of breath with conversation, sodium 127 likely secondary to her decreased p.o. intake. Patient reports she had been lean and thin since couple of years, also reports she had always had decreased appetite since last few years which has even worsened since flulike symptoms recently, patient reports feverish feeling at home, reports some headache and dizziness and weakness and sore throat and chest pain with cough, denies palpitation, reports no acute changes in her bowel movements. Patient quit smoking in 2011, denies alcohol and drug use Patient would not like to discuss medication due to being short of breath with conversation, outpatient chart reviewed for medications. Allergies Allergy/AdvReac Type Severity Reaction Status Date / Time No Known Allergies Allergy Mild Verified 10/13/22 21:35 Home Medications Medication Instructions Recorded Confirmed Type atorvastatin 20 mg tablet 1 tab PO QAM 04/28/22 10/13/22 History cholecalciferol (vitamin D3) 125 125 mcg PO 2XWK 04/28/22 10/13/22 History mcg (5,000 unit) tablet (Vitamin D3) ibuprofen 200 mg tablet 400 mg PO Q6H PRN Pain 04/28/22 10/13/22 History acetaminophen 500 mg tablet 1,000 mg PO Q6H PRN Fever Or Pain 10/13/22 10/13/22 History (Tylenol Extra Strength) ciprofloxacin HCl 500 mg tablet 500 mg PO BID 10/13/22 10/13/22 History famotidine 40 mg tablet (Pepcid) 40 mg PO QAM 10/13/22 10/13/22 History guaifenesin 600 mg tablet, 600 mg PO AMHS 10/13/22 10/13/22 History extended release 12 hr (Mucinex) ipratropium 0.5 mg-albuterol 3 mg 4 ml inhalation QID 10/13/22 10/13/22 History (2.5 mg base)/3 mL nebulization soln lorazepam 1 mg tablet 0.5 mg PO Q6 PRN Anxiety 10/13/22 10/13/22 History prednisone 10 mg tablet 10 mg PO QAM 10/13/22 10/13/22 History Past Med/Surg History Medical History Chronic respiratory failure COPD (chronic obstructive pulmonary disease) Subclavian artery stenosis, left Family History Other Family history non-contributory Social History Smoking Status: Former smoker Hx Alcohol Use: No Hx Substance Use: No Preferred Language: Urdu Communication Ability: Effective Current Living Situation: Family Feels Safe at Home: Yes Assistive Devices: Walker and Wheelchair Review of Systems Review of Systems: Negative otherwise mentioned in HPI. Physical Exam Physical Exam: GENERAL: Alert and oriented x3. NAD, on 2.5 L O2 via OM. Lean and thin appearing. Lethargic/tired and chronically ill appearing. SOB w/ prolonged conversation. HEENT: No pallor, no icterus. Pupils equal, round and reactive to light. Oral mucosa moist. NECK: No JVD, no neck masses. HEART: S1 and S2 heard. Regular rate and rhythm. No murmur, no gallop. RESPIRATORY SYSTEM: Normal AP diameter. No accessory muscle use. No wheezing, b/b crackles. ABDOMEN: Soft, bowel sounds present, nontender, no distention. CENTRAL NERVOUS SYSTEM: No facial droop. Speech is clear. Obeys simple commands. Moves extremities. EXTREMITIES: No edema, no erythema seen. Results & Data Results & Data ([facility]) Vital Signs (Past 12 Hours) Vital Signs Temp Pulse Pulse Resp BP BP Pulse Ox 10/13/22 20:00 112 H 18 141/64 H 92 10/13/22 18:54 107 H 20 93 10/13/22 18:21 102 H 22 95 10/13/22 18:21 36.4 C L 102 H 22 141/84 H 96 10/13/22 18:20 96 H 23 97 10/13/22 18:20 96 H 23 97 10/13/22 18:09 96 O2 Del Method O2 Flow Rate FiO2 10/13/22 20:00 10/13/22 18:54 2.5 10/13/22 18:21 BiPAP 10/13/22 18:21 Room Air 10/13/22 18:20 BiPAP 40 10/13/22 18:20 40 10/13/22 18:09 Nasal Cannula 2.5
[2022-10-13] MEDS ORDERED: ONDANSETRON INJ 2 MG/ML 2 ML VIAL IV PRN (22:09)
[2022-10-13] MEDS ORDERED: MAGNESIUM HYDROXIDE SUSP 30 ML UDC PO PRN (22:09)
[2022-10-13] MEDS ORDERED: ALUMINUM/MAGNESIUM SUSP 30 ML UDC PO PRN (22:09)
[2022-10-13] MEDS ORDERED: POLYETHYLENE (MIRALAX) 17 GM PACK PO PRN (22:09)
[2022-10-13] MEDS ORDERED: ALBUT/IPRATROP 3MG/0.5MG NEB 3 ML VIAL NEB PRN (22:10)
[2022-10-14 06:12] LABS: Hemoglobin 13.6 g/dl (12.0-16.0); Mean Corpuscular Hemoglobin 31.3 pg (25.0-34.0); Mean Corpuscular Hgb Conc 33.2 g/dL (32.0-36.0); Mean Corpuscular Volume 94.5 fL (80.0-100.0); Mean Platelet Volume 8.9 fL (9.4-12.3); Platelet Count 392 K/uL (130-400); RDW Coefficient of Variation 13.3 % (11.5-14.5); RDW Standard Deviation 46.8 fL (36.4-46.3); Red Blood Count 4.34 M/uL (3.93-5.22); White Blood Count 6.54 K/ul (4.8-10.8)
[2022-10-14 06:41] LABS: BUN Creatinine Ratio 24.6 (10-20); Calcium 8.9 mg/dl (8.5-10.1); Creatinine Clr Calc Pharmacy 63.2 ml/min; Est GFR (African American) 104.4 ml/min; Magnesium 1.5 mg/dl (1.7-2.4); Potassium 4.3 mmol/L (3.5-5.1)
[2022-10-14] MEDS: ALBUT/IPRATROP 3MG/0.5MG NEB 3 ML VIAL NEB SCH ×4 (07:45→19:04)
--- NOTE | 2022-10-14 08:40 | Urology Consultation ---
Date of Consultation October 14, 2022 Assessment & Plan (1) Urinary tract infection: Urinalysis suspicious for infection. Urine culture and blood cultures are pending. She remains on ceftriaxone. Would recommend continuing broad-spectrum antibiotics until culture data is available. (2) Nephrolithiasis: She appears to have stones in the right renal pelvis and right kidney. She denies any overt flank pain and the stones do not appear to be obstructing. She has normal WBC and creatinine. For now I would recommend continuing to monitor /supportive care. If she starts having symptoms of obstruction we can reevaluate and consider stent placement. (3) Gross hematuria: For now, she appears to be emptying her bladder well. Would recommend continuing antibiotics and narrowing coverage as urine culture and blood culture data becomes available. If she develops urinary retention, would recommend placement of a large bore catheter and hand irrigation to remove any possible clots. We reviewed that hematuria has several benign causes, it may be related to UTI or potentially to her stones. We also discussed that there is a risk that this could represent underlying malignancy. Work-up for malignancy could be done as an outpatient, however she is not sure whether she would want to pursue this work-up given that she has been on hospice in the past. Plan -Continue broad-spectrum antibiotics, narrow coverage as culture data becomes available -Monitor urine output, as long as she is still voiding no need for catheterization -If she develops urinary retention, would recommend placement of large bore catheter (24 [place]) and hand irrigation to remove any clots. -Monitor for flank pain. No plan for urologic interventions for stones at this time as they do not appear to be obstructing. -Gross hematuria work-up can be discussed as an outpatient History of Present Illness Attending Physician: Ben Ontiveros MD History of Present Illness This is a 77-year-old female with history of COPD and chronic oxygen requirement who presented to the emergency department on 10/13/2022 with worsening shortness of breath and fever to 104. She was found to have influenza and was admitted to the hospital for care. Additional work-up was notable for urinalysis suspicious for infection. She reported several days worth of hematuria with some clots, leading up to presentation. She had been on an antibiotic for an infection which had improved the hematuria somewhat. CT abdomen pelvis was performed in the ED. I independently reviewed these images. She has 2 stones in the right kidney as well as some thickening of the right renal pelvis, however no evidence for obstructing stones in either side. Her bladder appears to have a small diverticulum, but no significant intraluminal masses and no obvious clot within the bladder. Today she reports intermittent fevers and shortness of breath. She denies any significant sensation within her bladder, that she has history of transverse myelitis. She cannot feel when she empties her bladder or moves her bowels. S he denies any sense of fullness although has some pain that moves around through both sides of her back. She denies any focal kidney tenderness. She reports some rib pain. She tells me that she has been on hospice in the past and is unclear whether that is still the case. Allergies Allergy/AdvReac Type Severity Reaction Status Date / Time No Known Allergies Allergy Mild Verified 10/13/22 21:35 Home Medications Medication Instructions Recorded Confirmed Type atorvastatin 20 mg tablet 1 tab PO QAM 04/28/22 10/13/22 History cholecalciferol (vitamin D3) 125 125 mcg PO 2XWK 04/28/22 10/13/22 History mcg (5,000 unit) tablet (Vitamin D3) ibuprofen 200 mg tablet 400 mg PO Q6H PRN Pain 04/28/22 10/13/22 History acetaminophen 500 mg tablet 1,000 mg PO Q6H PRN Fever Or Pain 10/13/22 10/13/22 History (Tylenol Extra Strength) ciprofloxacin HCl 500 mg tablet 500 mg PO BID 10/13/22 10/13/22 History famotidine 40 mg tablet (Pepcid) 40 mg PO QAM 10/13/22 10/13/22 History guaifenesin 600 mg tablet, 600 mg PO AMHS 10/13/22 10/13/22 History extended release 12 hr (Mucinex) ipratropium 0.5 mg-albuterol 3 mg 4 ml inhalation QID 10/13/22 10/13/22 History (2.5 mg base)/3 mL nebulization soln lorazepam 1 mg tablet 0.5 mg PO Q6 PRN Anxiety 10/13/22 10/13/22 History prednisone 10 mg tablet 10 mg PO QAM 10/13/22 10/13/22 History Patient History Medical History Chronic respiratory failure COPD (chronic obstructive pulmonary disease) Subclavian artery stenosis, left Family History Other Family history non-contributory Social History Smoking Status: Former smoker Hx Alcohol Use: No Hx Substance Use: No Preferred Language: Azeri Communication Ability: Effective Supervisor Of Guidance And Testing Required: No Beliefs That Will Affect Care: None Current Living Situation: Family Other Information That Helps Us Care for You: No Feels Safe at Home: Yes Safety Concerns: Feels Safe At This Time Assistive Devices: Glasses Review of Systems Review of Systems: 14 point review of systems negative except for otherwise indicated. Constitutional: Fevers Respiratory: Shortness of breath Musculoskeletal: Report some rib pain Results & Data ([facility]) Vital Signs (Past 12 Hours) Vital Signs Temp Pulse Pulse Resp BP BP BP 10/14/22 07:46 80 18 10/14/22 07:27 36.5 C 102 H 20 127/84 10/14/22 05:31 36.5 C 97 H 18 113/73 10/14/22 00:15 36.3 C L 94 H 20 129/72 10/14/22 00:50 10/14/22 00:00 98 H 28 H 140/85 10/13/22 23:00 96 H 20 112/73 Pulse Ox O2 Del Method O2 Flow Rate 10/14/22 07:46 93 Oxymask 3 10/14/22 07:27 93 Oxymask 2 10/14/22 05:31 95 Oxymask 3 10/14/22 00:15 96 Oxymask 2 10/14/22 00:50 Oxymask 3 10/14/22 00:00 96 Oxymask 3 10/13/22 23:00 97 Nasal Cannula 2.5 PG Care Time/CCT Total # of Minutes Spent Total Time Spent with Patient: Total time spent is greater than 50% in coordination of care (as documented) at patient's floor/unit and/or counseling patient: Coding Level of Care Code 68605 Initial Inpt Care Lvl 2 Diagnoses Urinary tract infection N39.0 Nephrolithiasis N20.0 Gross hematuria R31.0
[2022-10-14] MEDS ORDERED: HEPARIN SOD 5,000 UNIT/0.5 ML VIAL SQ SCH (09:00)
[2022-10-14] MEDS ORDERED: MAGNESIUM SULFATE / D5W 1 GM/100 ML BAG IV ONE (09:10)
[2022-10-14] MEDS: guaiFENesin 600 MG TABCR PO SCH ×2 (09:30→20:43)
[2022-10-14] MEDS: ATORVASTATIN 20 MG TAB PO SCH (09:30)
[2022-10-14] MEDS: FAMOTIDINE 40 MG TABLET PO SCH (09:31)
[2022-10-14] MEDS: predniSONE 10 MG TABLET PO SCH (09:59)
--- NOTE | 2022-10-14 13:19 | Hospitalist Progress Note ---
Date of Service October 14, 2022 Assessment & Plan (1) Hypoxia: Plan Generalized weakness Failure to thrive Influenza A COPD Chronic respiratory failure with hypoxia on 2.5 L supplemental oxygen at baseline Previously on Hospice services --CXR:Emphysema. Otherwise, no acute process within the chest. --Biofire positive for Influenza A Started on Tamiflu Continue nebs, prednisone Supplemental oxygen to maintain sats 88 to 92% Dietitian consulted Complicated UTI Nephrolithiasis Gross Hematuria: DD due to UTI, nephrolithiasis, malignancy cannot be ruled -Failed outpatient antibiotic course. --CT ABD: No bowel wall thickening or obstruction. Colonic diverticulosis. No evidence for acute diverticulitis. Cholelithiasis. No gallbladder wall thickening. Right-sided nephrolithiasis. No ureteral stones. No hydronephrosis. Mild urothelial thickening within the right extrarenal pelvis which could be due to chronic irritation from the 9 mm nonobstructing stone. Recommend correlation with urinalysis to exclude a pyelitis. -- Blood, urine culture pending --Continue ceftriaxone Appreciate urology input Hypomagnesemia Replete electrolytes as needed Chronic Hyponatremia: Likely multifactorial Monitor sodium levels Abnormal CT: -There is chronic collapse of the right lower lobe with opacified right lower lobe bronchi. This is similar to the 2016 examination. There is a trace right pleural effusion. The tree-in-bud nodular opacities with partial opacification of the left lower lobe bronchi is also similar to the prior study. Findings could represent chronic aspiration. Follow-up nonemergent pulmonary consultation recommended to better assess the chronic right lower lobe collapse. -Patient currently prefers no further investigations -Advised to follow-up with pulmonology as outpatient if changes her decision DVT Px: SCDs for now Re: Gross Hematuria Will place on Heparin SQ once hematuria resolves as H/O Factor V Code Status DNI/DNR as per my discussion with patient Admission and Anticipated Discharge Date Admission Date: October 13, 2022 Subjective Patient is seen and examined at bedside States having chronic cough, shortness of breath Also reports hematuria and has chronic back pain Denies any chest pain, dizziness, abdominal pain, nausea Review of Systems Review of Systems: All systems reviewed & are unremarkable except as noted in Subjective Physical Exam Physical Exam: Physical Exam: Vitals signs as noted above General Appearance:Thin, frail, chronic ill appearing, no apparent distress Head: normocephalic, Atraumatic Eyes: normal inspection, EOMI Neck: supple, Trachea midline Respiratory/Chest: Decreased breath sounds, CTA, No accessory muscle use Cardiovascular: S1, S2, No murmur Abdomen/GI:Soft, Non tender, Bowel sounds present Extremities/Musculoskeletal:normal inspection, no edema Neurologic/Psych:AAO, grossly no focal neurological deficits Skin: normal color, warm Results & Data Results & Data ([facility]) Vital Signs (Past 12 Hours) Vital Signs Temp Pulse Pulse Resp BP Pulse Ox O2 Del Method 10/14/22 12:24 36.9 C 109 H 20 117/78 90 Nasal Cannula 10/14/22 11:43 88 22 91 Nasal Cannula 10/14/22 08:00 81 10/14/22 08:00 Nasal Cannula 10/14/22 07:46 80 18 93 Oxymask 10/14/22 07:27 36.5 C 102 H 20 127/84 93 Oxymask 10/14/22 05:31 36.5 C 97 H 18 113/73 95 Oxymask O2 Flow Rate 10/14/22 12:24 2.5 10/14/22 11:43 2 10/14/22 08:00 10/14/22 08:00 3 10/14/22 07:46 3 10/14/22 07:27 2 10/14/22 05:31 3 Laboratory Results Short CBC 10/13/22 10/14/22 Range/Units 18:05 05:19 WBC 10.23 6.54 (4.8-10.8) K/ul Hgb 15.5 13.6 (12.0-16.0) g/dl Hct 43.1 41.0 (34.1-44.9) % Plt Count 414 H 392 (130-400) K/uL BMP 10/13/22 10/14/22 18:05 05:19 Sodium 127 L 132 L Potassium 4.1 4.3 Chloride 84 L 90 L Carbon Dioxide 37 H 39 H BUN 14 14 Creatinine 0.52 L 0.57 L Glucose 160 H 126 H Calcium 9.8 8.9 Liver Function 10/13/22 Range/Units 18:05 Total Bilirubin 0.5 (0.2-1.0) mg/dl AST 26 (13-39) U/L ALT 28 (7-52) U/L Alkaline Phosphatase 69 (34-104) U/L Albumin 3.3 L (3.4-5.0) gm/dl Urine 10/13/22 Range/Units 20:38 Urine Color [place] Urine Appearance Turbid A (Clear) Urine pH 8.0 H (4.5-7.5) Ur Specific [place] 1.008 (1.000-1.030) Urine Protein 2+ H (Negative) Urine Glucose (UA) Negative (Negative)
[2022-10-14] MEDS: OSELTAMIVIR PHOSPHATE 75 MG CAP PO SCH ×2 (13:26→20:42)
--- NOTE | 2022-10-14 14:43 | Electrocardiogram Report ---
Test Reason : Blood Pressure : / mmHG Vent. Rate : 102 BPM Atrial Rate : 102 BPM P-R Int : 134 ms QRS Dur : 074 ms QT Int : 344 ms P-R-T Axes : 084 -30 076 degrees QTc Int : 448 ms Sinus tachycardia with Premature atrial complexes Possible Left atrial enlargement Left axis deviation Poor R wave progression, consider anterior WA vs. lead placement vs. LVH Abnormal ECG When compared with ECG of 27-APR-2022 18:36, Premature atrial complexes are now Present QRS axis Shifted left Confirmed by Omar Romo ([id number]) on 10/14/2022 2:43:22 PM Referred By: REFERRED SELF Confirmed By:Omar Romo
[2022-10-14] MEDS: LORazepam 0.5 MG TAB PO PRN (17:31)
[2022-10-14] MEDS: cefTRIAXone SODIUM 1,000 MG in DEXTROSE 5% AD-VAN 50 ML IV SCH (20:42)
[2022-10-15] MEDS: LORazepam 0.5 MG TAB PO PRN ×2 (04:05→10:00)
[2022-10-15 07:04] LABS: Hematocrit (blood only) 40.4 % (34.1-44.9); Hemoglobin 13.2 g/dl (12.0-16.0); Mean Corpuscular Hemoglobin 31.1 pg (25.0-34.0); Mean Corpuscular Hgb Conc 32.7 g/dL (32.0-36.0); Mean Corpuscular Volume 95.1 fL (80.0-100.0); Platelet Count 405 K/uL (130-400); RDW Coefficient of Variation 13.4 % (11.5-14.5); RDW Standard Deviation 47.4 fL (36.4-46.3); Red Blood Count 4.25 M/uL (3.93-5.22); White Blood Count 14.34 K/ul (4.8-10.8)
[2022-10-15 07:30] LABS: BUN Creatinine Ratio 33.3 (10-20); Calcium 8.5 mg/dl (8.5-10.1); Creatinine Clr Calc Pharmacy 60.1 ml/min; Est GFR (African American) 102.6 ml/min; Est GFR (Non-African American) 88.5 ml/min; Magnesium 1.7 mg/dl (1.7-2.4)
[2022-10-15] MEDS: ALBUT/IPRATROP 3MG/0.5MG NEB 3 ML VIAL NEB SCH ×4 (07:41→19:16)
[2022-10-15] MEDS: ATORVASTATIN 20 MG TAB PO SCH (08:36)
[2022-10-15] MEDS: FAMOTIDINE 40 MG TABLET PO SCH (08:36)
[2022-10-15] MEDS: CHOLECALCIFEROL 5,000 UNITS 125 MCG TAB PO SCH (08:36)
[2022-10-15] MEDS: predniSONE 10 MG TABLET PO SCH (08:36)
[2022-10-15] MEDS: guaiFENesin 600 MG TABCR PO SCH ×2 (08:37→21:09)
[2022-10-15] MEDS: OSELTAMIVIR PHOSPHATE 75 MG CAP PO SCH ×2 (08:39→21:10)
--- NOTE | 2022-10-15 09:08 | Urology Progress Note ---
Date of Service October 15, 2022 Assessment & Plan (1) Gross hematuria: Plan: Hematuria seems to be resolved at this point based on output in the pure wick container. Reasonable to restart heparin from the urology perspective (2) Urinary tract infection: Plan: Urine culture negative, blood cultures negative so far. No clear explanation for increased WBC today, but she is feeling in her normal state with no fevers. No new flank pain. Would consider other sources of infection/WBC. Reasonable to continue ceftriaxone for now. (3) Nephrolithiasis: Plan: No evidence of obstruction from her nephrolithiasis. We will continue to hold off on intervention. If she starts having persistent flank pain or clinically deteriorating, we can reconsider intervention with stent placement. Admission and Anticipated Discharge Date Admission Date: October 13, 2022 Subjective Feeling well today, no new symptoms. Still having some ongoing back pain. Denies fevers or chills Urine is clear via purewick WBC increased to 14.34 today from 6.54. Creatinine stable at 0.6 Urine culture with no growth, blood cultures negative at 24 hours, remains on ceftriaxone Physical Exam Physical Exam: Frail-appearing, breathing on supplemental oxygen by facemask, NAD Results & Data ([facility]) Vital Signs (Past 12 Hours) Vital Signs Temp Pulse Resp BP Pulse Ox O2 Del Method O2 Flow Rate 10/15/22 07:43 80 18 96 Oxymask 2 10/15/22 07:27 36.6 C 91 H 18 108/68 97 Oxymask 2 10/15/22 00:39 Oxymask 2 10/14/22 23:22 36.4 C L 81 18 111/68 96 Room Air PG Care Time/CCT Total # of Minutes Spent Total Time Spent with Patient: Total time spent is greater than 50% in coordination of care (as documented) at patient's floor/unit and/or counseling patient: Coding Level of Care Code 01464 Subseq Hosp Care Lvl 2 Diagnoses Gross hematuria R31.0 Urinary tract infection N39.0 Nephrolithiasis N20.0
[2022-10-15] MEDS: ACETAMINOPHEN 325 MG TAB PO PRN ×2 (13:21→21:09)
--- NOTE | 2022-10-15 15:57 | Hospitalist Progress Note ---
Date of Service October 15, 2022 Assessment & Plan (1) Hypoxia: Plan Generalized weakness Failure to thrive Influenza A COPD Chronic respiratory failure with hypoxia on 2.5 L supplemental oxygen at baseline Previously on Hospice services --CXR:Emphysema. Otherwise, no acute process within the chest. --Biofire positive for Influenza A Continue Tamiflu Continue nebs, prednisone Supplemental oxygen to maintain sats 88 to 92% Dietitian consulted Saturating well on baseline supplemental oxygen Complicated UTI Nephrolithiasis Gross Hematuria: DD due to UTI, nephrolithiasis, malignancy cannot be ruled -Failed outpatient antibiotic course. --CT ABD: No bowel wall thickening or obstruction. Colonic diverticulosis. No evidence for acute diverticulitis. Cholelithiasis. No gallbladder wall thickening. Right-sided nephrolithiasis. No ureteral stones. No hydronephrosis. Mild urothelial thickening within the right extrarenal pelvis which could be due to chronic irritation from the 9 mm nonobstructing stone. Recommend correlation with urinalysis to exclude a pyelitis. -- Blood cultures negative to date --urine culture Negative -Continue ceftriaxone for now Appreciate urology input Hematuria resolved Hypomagnesemia Replete electrolytes as needed Chronic Hyponatremia: Likely multifactorial Monitor sodium levels Abnormal CT: -There is chronic collapse of the right lower lobe with opacified right lower lobe bronchi. This is similar to the 2016 examination. There is a trace right pleural effusion. The tree-in-bud nodular opacities with partial opacification of the left lower lobe bronchi is also similar to the prior study. Findings could represent chronic aspiration. Follow-up nonemergent pulmonary consultation recommended to better assess the chronic right lower lobe collapse. -Patient currently prefers no further investigations -Advised to follow-up with pulmonology as outpatient if changes her decision DVT Px: SCDs for now Re: Gross Hematuria Trial of SQ heparin today hematuria resolved and Patient has H/O Factor V Code Status DNI/DNR as per my discussion with patient Admission and Anticipated Discharge Date Admission Date: October 13, 2022 Subjective Patient is seen and examined at bedside Reports generalized weakness Hematuria resolved Less cough today Chronic dyspnea which is unchanged Denies any chest pain, dizziness, abdominal pain, nausea Saturating well on baseline supplemental oxygen Review of Systems Review of Systems: All systems reviewed & are unremarkable except as noted in Subjective Physical Exam Physical Exam: Physical Exam: Vitals signs as noted above General Appearance:Thin, frail, chronic ill appearing, no apparent distress Head: normocephalic, Atraumatic Eyes: normal inspection, EOMI Neck: supple, Trachea midline Respiratory/Chest: Decreased breath sounds, CTA, No accessory muscle use Cardiovascular: S1, S2, No murmur Abdomen/GI:Soft, Non tender, Bowel sounds present Extremities/Musculoskeletal:normal inspection, no edema Neurologic/Psych:AAO, grossly no focal neurological deficits Skin: normal color, warm Results & Data Results & Data ([facility]) Vital Signs (Past 12 Hours) Vital Signs Temp Pulse Resp BP Pulse Ox O2 Del Method O2 Flow Rate 10/15/22 15:34 104 H 18 93 Oxymask 2.5 10/15/22 15:20 36.7 C 94 H 20 105/66 97 Oxymask 2.5 10/15/22 15:03 36.6 C 100 H 18 92/60 L 93 Oxymask 4 10/15/22 11:06 96 H 18 95 Oxymask 2 10/15/22 08:45 Nasal Cannula, Oxymask 2 10/15/22 07:43 80 18 96 Oxymask 2 10/15/22 07:27 36.6 C 91 H 18 108/68 97 Oxymask 2 Laboratory Results Short CBC 10/15/22 Range/Units 06:12 WBC 14.34 H (4.8-10.8) K/ul Hgb 13.2 (12.0-16.0) g/dl Hct 40.4 (34.1-44.9) % Plt Count 405 H (130-400) K/uL BMP 10/15/22 06:12 Sodium 131 L Potassium 4.0 Chloride 89 L Carbon Dioxide 40 H BUN 20 Creatinine 0.60 Glucose 85 Calcium 8.5
[2022-10-15] MEDS: cefTRIAXone SODIUM 1,000 MG in DEXTROSE 5% AD-VAN 50 ML IV SCH (21:08)
[2022-10-15] MEDS: HEPARIN SOD 5,000 UNIT/0.5 ML VIAL SQ SCH (21:09)
[2022-10-16 07:57] LABS: Hemoglobin 12.9 g/dl (12.0-16.0); Mean Corpuscular Hemoglobin 31.8 pg (25.0-34.0); Mean Corpuscular Hgb Conc 33.1 g/dL (32.0-36.0); Mean Corpuscular Volume 96.1 fL (80.0-100.0); Mean Platelet Volume 8.9 fL (9.4-12.3); Platelet Count 365 K/uL (130-400); RDW Coefficient of Variation 13.4 % (11.5-14.5); RDW Standard Deviation 48.1 fL (36.4-46.3); Red Blood Count 4.06 M/uL (3.93-5.22); White Blood Count 11.03 K/ul (4.8-10.8)
[2022-10-16] MEDS: ALBUT/IPRATROP 3MG/0.5MG NEB 3 ML VIAL NEB SCH ×4 (08:01→20:18)
[2022-10-16 08:28] LABS: BUN Creatinine Ratio 33.9 (10-20); Calcium 8.6 mg/dl (8.5-10.1); Creatinine Clr Calc Pharmacy 64.4 ml/min; Est GFR (Non-African American) 90.6 ml/min; Magnesium 1.7 mg/dl (1.7-2.4); Potassium 4.4 mmol/L (3.5-5.1)
[2022-10-16] MEDS: HEPARIN SOD 5,000 UNIT/0.5 ML VIAL SQ SCH ×2 (08:32→20:07)
[2022-10-16] MEDS: predniSONE 10 MG TABLET PO SCH (08:32)
[2022-10-16] MEDS: FAMOTIDINE 40 MG TABLET PO SCH (08:33)
[2022-10-16] MEDS: guaiFENesin 600 MG TABCR PO SCH ×2 (08:33→20:06)
[2022-10-16] MEDS: ATORVASTATIN 20 MG TAB PO SCH (08:33)
[2022-10-16] MEDS: OSELTAMIVIR PHOSPHATE 75 MG CAP PO SCH ×2 (08:34→20:05)
--- NOTE | 2022-10-16 15:19 | Hospitalist Progress Note ---
Date of Service October 16, 2022 Assessment & Plan (1) Hypoxia: Plan Generalized weakness Failure to thrive Influenza A COPD Chronic respiratory failure with hypoxia on 2.5 L supplemental oxygen at baseline Previously on Hospice services --CXR:Emphysema. Otherwise, no acute process within the chest. --Biofire positive for Influenza A Continue Tamiflu Continue nebs, prednisone Supplemental oxygen to maintain sats 88 to 92% Dietitian consulted Saturating well on baseline supplemental oxygen Continue current management Complicated UTI Nephrolithiasis Gross Hematuria: DD due to UTI, nephrolithiasis, malignancy cannot be ruled -Failed outpatient antibiotic course. --CT ABD: No bowel wall thickening or obstruction. Colonic diverticulosis. No evidence for acute diverticulitis. Cholelithiasis. No gallbladder wall thickening. Right-sided nephrolithiasis. No ureteral stones. No hydronephrosis. Mild urothelial thickening within the right extrarenal pelvis which could be due to chronic irritation from the 9 mm nonobstructing stone. Recommend correlation with urinalysis to exclude a pyelitis. -- Blood cultures negative to date --urine culture Negative -Continue ceftriaxone for now Appreciate urology input Hematuria resolved Hypomagnesemia Replete electrolytes as needed Chronic Hyponatremia: Likely multifactorial Monitor sodium levels Sodium [address]: -There is chronic collapse of the right lower lobe with opacified right lower lobe bronchi. This is similar to the 2016 examination. There is a trace right pleural effusion. The tree-in-bud nodular opacities with partial opacification of the left lower lobe bronchi is also similar to the prior study. Findings could represent chronic aspiration. Follow-up nonemergent pulmonary consultation recommended to better assess the chronic right lower lobe collapse. -Patient currently prefers no further investigations -Advised to follow-up with pulmonology as outpatient if changes her decision Severe protein-calorie malnutrition BMI 17 Dietitian consulted DVT Px: SQ Heparin Code Status DNI/DNR as per my discussion with patient Admission and Anticipated Discharge Date Admission Date: October 13, 2022 Subjective Patient is seen and examined at bedside No new complaints Minimal cough Chronic dyspnea Denies any chest pain, dizziness, abdominal pain, nausea Review of Systems Review of Systems: All systems reviewed & are unremarkable except as noted in Subjective Physical Exam Physical Exam: Physical Exam: Vitals signs as noted above General Appearance:Thin, frail, chronic ill appearing, no apparent distress Head: normocephalic, Atraumatic Eyes: normal inspection, EOMI Neck: supple, Trachea midline Respiratory/Chest: Decreased breath sounds, CTA, No accessory muscle use Cardiovascular: S1, S2, No murmur Abdomen/GI:Soft, Non tender, Bowel sounds present Extremities/Musculoskeletal:normal inspection, no edema Neurologic/Psych:AAO, grossly no focal neurological deficits Skin: normal color, warm Results & Data Results & Data ([facility]) Vital Signs (Past 12 Hours) Vital Signs Temp Pulse Resp BP Pulse Ox O2 Del Method O2 Flow Rate 10/16/22 15:03 36.5 C 104 H 16 111/71 94 Oxymask 3 10/16/22 08:00 Oxymask 10/16/22 11:13 103 H 18 90 Oxymask 3 10/16/22 08:02 90 18 93 Oxymask 3 10/16/22 07:42 36.5 C 96 H 14 116/74 97 Oxymask 3 Laboratory Results Short CBC 10/16/22 Range/Units 07:18 WBC 11.03 H (4.8-10.8) K/ul Hgb 12.9 (12.0-16.0) g/dl Hct 39.0 (34.1-44.9) % Plt Count 365 (130-400) K/uL BMP 10/16/22 07:09 Sodium 132 L Potassium 4.4 Chloride 90 L Carbon Dioxide 38 H BUN 19 Creatinine 0.56 L Glucose 68 L Calcium 8.6
[2022-10-16] MEDS: cefTRIAXone SODIUM 1,000 MG in DEXTROSE 5% AD-VAN 50 ML IV SCH (20:02)
[2022-10-17] MEDS: LORazepam 0.5 MG TAB PO PRN (03:32)
[2022-10-17] MEDS: ALBUT/IPRATROP 3MG/0.5MG NEB 3 ML VIAL NEB SCH ×5 (07:29→20:07)
[2022-10-17 09:09] LABS: Hematocrit (blood only) 41.4 % (34.1-44.9); Hemoglobin 13.8 g/dl (12.0-16.0); Mean Corpuscular Hemoglobin 31.6 pg (25.0-34.0); Mean Corpuscular Hgb Conc 33.3 g/dL (32.0-36.0); Mean Corpuscular Volume 94.7 fL (80.0-100.0); Mean Platelet Volume 8.9 fL (9.4-12.3); Platelet Count 422 K/uL (130-400); RDW Coefficient of Variation 13.2 % (11.5-14.5); RDW Standard Deviation 45.8 fL (36.4-46.3); Red Blood Count 4.37 M/uL (3.93-5.22); White Blood Count 16.01 K/ul (4.8-10.8)
[2022-10-17] MEDS: predniSONE 10 MG TABLET PO SCH (09:17)
[2022-10-17] MEDS: guaiFENesin 600 MG TABCR PO SCH ×2 (09:18→20:39)
[2022-10-17] MEDS: ATORVASTATIN 20 MG TAB PO SCH (09:18)
[2022-10-17] MEDS: FAMOTIDINE 40 MG TABLET PO SCH (09:18)
[2022-10-17] MEDS: OSELTAMIVIR PHOSPHATE 75 MG CAP PO SCH ×2 (09:19→20:39)
[2022-10-17] MEDS: HEPARIN SOD 5,000 UNIT/0.5 ML VIAL SQ SCH ×2 (09:20→20:39)
[2022-10-17 09:34] LABS: BUN Creatinine Ratio 36.4 (10-20); Calcium 8.6 mg/dl (8.5-10.1); Creatinine Clr Calc Pharmacy 112.6 ml/min; Est GFR (African American) 124.9 ml/min; Est GFR (Non-African American) 107.8 ml/min; Magnesium 1.8 mg/dl (1.7-2.4); Potassium 4.2 mmol/L (3.5-5.1)
--- NOTE | 2022-10-17 11:12 | Urology Progress Note ---
Date of Service October 17, 2022 Assessment & Plan (1) Nephrolithiasis: (2) Urinary tract infection: Plan: Urine culture negative, blood cultures negative x 48 hours. WBC elevated to 16.01 today, likely due to current steroid course. No fevers or flank pain. Reasonable to continue ceftriaxone for now due to findings of pyelitis. No evidence of obstruction from her nephrolithiasis. We will continue to hold off on intervention. Patient is currently on hospice and does not wish to pursue surgical intervention at this time. If she starts having persistent flank pain or clinically deteriorating, we can reconsider intervention with stent placement depending on patient's care goals. Recommend supportive care and antibiotics per primary service. Can arrange an outpatient follow-up with our service depending on patient's care goals. will sign off. Please contact us for any further questions or concerns. Admission and Anticipated Discharge Date Admission Date: October 13, 2022 Subjective Patient seen and examined at bedside this AM. No new complaints. Chronic dyspnea. Denies fever or chills. Urine yellow via purewick. Labs - WBC increased to 16.01. Creatinine stable at 0.33. Urine culture with no growth, blood cultures negative at 48 hours, remains on ceftriaxone. Review of Systems Constitutional: as per Subjective / HPI Gastrointestinal: as per Subjective / HPI Genitourinary: as per Subjective / HPI Physical Exam Constitutional: + thin and + frail appearing; no acute distress Respiratory: O2 via oxymask Genitourinary: urine yellow via purewick Results & Data ([facility]) Vital Signs (Past 12 Hours) Vital Signs Temp Pulse Resp BP Pulse Ox O2 Del Method O2 Flow Rate 10/17/22 09:38 110 H 24 87 L Oxymask 2 10/17/22 07:37 36.6 C 95 H 14 133/82 98 Nasal Cannula 2.5 10/17/22 07:30 106 H 20 98 Oxymask 2.5 PG Care Time/CCT Total # of Minutes Spent Total Time Spent with Patient: Total time spent is greater than 50% in coordination of care (as documented) at patient's floor/unit and/or counseling patient: Coding Level of Care Code 61103 Subseq Hosp Care Lvl 2 Diagnoses Nephrolithiasis N20.0 Urinary tract infection N39.0
--- NOTE | 2022-10-17 12:28 | XRay Report ---
XR chest 1V portable CLINICAL HISTORY: Dyspnea TECHNIQUE: Single frontal radiograph of the chest was obtained. Comparison: Comparison is made to chest radiograph 10/13/2022 FINDINGS: No lines and tubes are seen. Calcified aortic knob is seen. Emphysema is noted. A wedge-shaped densit y in the right lower lung may represent atelectasis seen on prior CT. No evidence of pleural effusion or pneumothorax. IMPRESSION: Emphysema is seen without evidence of pneumonia. Stable right lower lobe atelectasis. ACT 112: Negative or not required by law. Electronically signed by: Winston Adkins M.D. 10/17/2022 12:25 PM
--- NOTE | 2022-10-17 13:59 | Hospitalist Progress Note ---
Date of Service October 17, 2022 Assessment & Plan (1) Hypoxia: Plan Generalized weakness Failure to thrive Influenza A COPD Chronic respiratory failure with hypoxia on 2.5 L supplemental oxygen at baseline Previously on Hospice services --CXR:Emphysema. Otherwise, no acute process within the chest. --Biofire positive for Influenza A Continue Tamiflu Continue nebs, prednisone Supplemental oxygen to maintain sats 88 to 92% Dietitian consulted Saturating well on baseline supplemental oxygen Consult PT/OT Complicated UTI Nephrolithiasis Gross Hematuria: DD due to UTI, nephrolithiasis, malignancy cannot be ruled -Failed outpatient antibiotic course. --CT ABD: No bowel wall thickening or obstruction. Colonic diverticulosis. No evidence for acute diverticulitis. Cholelithiasis. No gallbladder wall thickening. Right-sided nephrolithiasis. No ureteral stones. No hydronephrosis. Mild urothelial thickening within the right extrarenal pelvis which could be due to chronic irritation from the 9 mm nonobstructing stone. Recommend correlation with urinalysis to exclude a pyelitis. -- Blood cultures negative to date --urine culture Negative -Continue ceftriaxone as recommended by Urology Appreciate urology input Hematuria resolved Urology offered possible intervention, patient refused Palliative care consulted to address goals of care Hypomagnesemia Replete electrolytes as needed Chronic Hyponatremia: Likely multifactorial Monitor sodium levels Sodium [address]: -There is chronic collapse of the right lower lobe with opacified right lower lobe bronchi. This is similar to the 2016 examination. There is a trace right pleural effusion. The tree-in-bud nodular opacities with partial opacification of the left lower lobe bronchi is also similar to the prior study. Findings could represent chronic aspiration. Follow-up nonemergent pulmonary consultation recommended to better assess the chronic right lower lobe collapse. -Patient currently prefers no further investigations -Advised to follow-up with pulmonology as outpatient if changes her decision Severe protein-calorie malnutrition BMI 17 Dietitian consulted DVT Px: SQ Heparin Code Status DNI/DNR as per my discussion with patient Admission and Anticipated Discharge Date Admission Date: October 13, 2022 Subjective Patient is seen and examined at bedside Poor historian Reports dyspnea today Denies any chest pain, dizziness, abdominal pain, nausea CXR today is unchanged Review of Systems Review of Systems: All systems reviewed & are unremarkable except as noted in Subjective Physical Exam Physical Exam: Physical Exam: Vitals signs as noted above General Appearance:Thin, frail, chronic ill appearing, no apparent distress Head: normocephalic, Atraumatic Eyes: normal inspection, EOMI Neck: supple, Trachea midline Respiratory/Chest: Decreased breath sounds, scattered wheezing, No accessory muscle use Cardiovascular: S1, S2, No murmur Abdomen/GI:Soft, Non tender, Bowel sounds present Extremities/Musculoskeletal:normal inspection, no edema Neurologic/Psych:AAO, grossly no focal neurological deficits Skin: normal color, warm Results & Data Results & Data ([facility]) Vital Signs (Past 12 Hours) Vital Signs Temp Pulse Resp BP Pulse Ox O2 Del Method O2 Flow Rate 10/17/22 09:20 Oxymask 2.5 10/17/22 11:15 107 H 20 96 Oxymask 2.5 10/17/22 09:38 110 H 24 87 L Oxymask 2 10/17/22 07:37 36.6 C 95 H 14 133/82 98 Nasal Cannula 2.5 10/17/22 07:30 106 H 20 98 Oxymask 2.5 Laboratory Results Short CBC 10/17/22 Range/Units 08:39 WBC 16.01 H (4.8-10.8) K/ul Hgb 13.8 (12.0-16.0) g/dl Hct 41.4 (34.1-44.9) % Plt Count 422 H (130-400) K/uL BMP 10/17/22 08:39 Sodium 130 L Potassium 4.2 Chloride 89 L Carbon Dioxide 38 H BUN 12 Creatinine 0.33 L Glucose 85 Calcium 8.6
[2022-10-17] MEDS ORDERED: LORazepam 0.5 MG TAB PO PRN (16:32)
[2022-10-17] MEDS: cefTRIAXone SODIUM 1,000 MG in DEXTROSE 5% AD-VAN 50 ML IV SCH (20:39)
[2022-10-17] MEDS: ACETAMINOPHEN 325 MG TAB PO PRN (20:41)
[2022-10-18] MEDS: ALBUT/IPRATROP 3MG/0.5MG NEB 3 ML VIAL NEB SCH ×2 (07:07→10:41)
[2022-10-18] MEDS: ACETAMINOPHEN 325 MG TAB PO PRN (07:49)
[2022-10-18] MEDS: guaiFENesin 600 MG TABCR PO SCH (07:52)
[2022-10-18] MEDS: predniSONE 10 MG TABLET PO SCH (07:52)
[2022-10-18] MEDS: HEPARIN SOD 5,000 UNIT/0.5 ML VIAL SQ SCH (07:52)
[2022-10-18] MEDS: CHOLECALCIFEROL 5,000 UNITS 125 MCG TAB PO SCH (07:52)
[2022-10-18] MEDS: ATORVASTATIN 20 MG TAB PO SCH (07:52)
[2022-10-18] MEDS: FAMOTIDINE 40 MG TABLET PO SCH (07:52)
[2022-10-18] MEDS: OSELTAMIVIR PHOSPHATE 75 MG CAP PO SCH (07:52)
--- NOTE | 2022-10-18 09:01 | Palliative Care Consultation ---
Date of Consultation October 18, 2022 Assessment & Plan (1) Palliative care encounter: Met with pt, provided overview of Palliative Medicine, a subspecialty that provides specialized medical care for people living with a serious illness by offering a focus on quality of life. Palliative Medicine is often conflated with hospice: I advised patient/family that Palliative and hospice can be partners but we are not the same. It is important to understand the difference so that we may be informed, and not afraid. Palliative Medicine works to improve QOL through reduction of symptom burden/more control over their illness, for both the patient and family. Palliative medicine clinicians are board certified, spe conchita-trained and another member of the patient's medical care team. We often provide an extra layer of support because our care is based on the needs of the patient, not the prognosis; as such, it's appropriate at any age/advancing stage of a serious illness and can be provided along with curative treatment. Palliative Medicine clinicians are also trained in advanced communication methodologies, to facilitate complex discussions about advanced illness planning, which are needed to help assure that the treatment choices match the patient's goals, aka delivering Goal Concordant care. Finally, we discussed that hospice is a visiting nurse service that focuses on care delivered at the very end of life for patients with terminal illness, with life expectancy less than 6 month. Patient states that she has been on home hospice and wishes to resume home hospice upon discharge. Her only reason to revoke hospice and come to the hospital this time was for enhanced treatment of her urinary infection which she states was not improving with the treatment hospice have initiated at home. (2) Advanced care planning/counseling discussion: Patient is a home hospice patient. She wishes to resume hospice upon discharge. She notes that her urinary symptoms have improved, her urine is clear again, no clots are noted, and she wants to return home today possible Patient also asked to have a new POLST form completed, stating that her prior one was completed during COVID and even though none of her elections are changing she would be more comfortable with 1 that is completed during non-COVID times. Patient would also like to have her flu and COVID vaccines. I advised her that with the flu positive finding this admission, it was unlikely we would be able to give her flu vaccine but I would pass along her request for COVID-vaccine booster. She is very fixated on receiving these vaccines and I have updated the primary team of same (3) Chronic respiratory failure with hypoxia, on home O2 therapy: Currently exacerbated by influenza A infection (4) COPD (chronic obstructive pulmonary disease): (5) Former smoker: (6) Pulmonary cachexia due to chronic obstructive pulmonary disease: (7) Failure to thrive: (8) Weakness generalized: Progressing transverse myelitis. Plan * Patient is a home hospice patient who wishes to resume the plan of care upon discharge. * She is ready to be discharged today and wants to resume hospice. She would like her COVID-vaccine prior to discharge. She would also like a new POLST form completed. * Her POLST collections are unchanged from prior: She elects DNR/DNI, she wants comfort care in the event of a natural or end-of-life symptoms, should she have something potentially treatable such as a urinary tract infection again she would like a trial of antibiotics for this. She would be willing to consider coming to the hospital should treatment at home not be successful. She does not want any aggressive or invasive therapies. She does not want IV hydration or artificial nutrition. * I have updated the primary team. Palliative medicine was consulted to assist with goals of care which has been done and outlined above. We will sign off at this time. Patient is a home hospice patient wishes to resume this plan of care and this should be coordinated for her as part of her disposition plan. Thank you for this consult. Please do not hesitate to call or page us for any urgent issues or every engagement with this patient during this admission as needed. Rubi Dhaliwal DNP Clinical Director, Palliative Medicine History of Present Illness Reason for Consultation: " On 10/17/22 @ 11:27 Ben Ontiveros Wrote To Estefani Nesbitt Please address goals of care" Attending Physician: Dorian Pride MD History of Present Illness 77-year-old female admitted 10/13/2022 from home with complaint of 1 week myalgias, dyspnea, weakness and "feeling feverish." Reports being exposed to sick contacts at home. Declining appetite and increasing frailty for the past 3 years. When EMS arrived her temperature was assessed to be 104. She tested influenza A positive at admission. She was also found to have an urinary tract infection with right pyelitis and reports she had been seeking UTI treatment with hematuria complaints for about a week prior to admission. She reports that she had worsening hematuria despite a beginning antibiotics on the outpatient basis. Admitting CAT scan revealed a right pyelitis with chronic irritation from what appears to be a 9 mm nonobstructing stone. Rocephin was initiated in the emergency department, urology consult was obtained. She was also noted to be mildly hyponatremic, with a sodium of 127,? Chronically mild hyponatremia versus exacerbation due to recent symptoms. Additionally, CT indicated a chronic tree-in-bud nodular opacity with partial opacification of the left lower lobe bronchi which was similarly noted on a prior study along with chronic collapse of the right lower lobe with opacified right lower lobe bronchi. This is not felt to be emergent and an outpatient pulmonary consult was recommended. PMH: COPD/former smoker, smoking-related lung disease, chronic hypoxic respiratory failure on 2.5 LPM nasal cannula baseline, failure to thrive, transverse myelitis, multiple sclerosis, chronic back pain, factor V deficiency, closed sacral fracture, chronic UTI. + Former smoker reports cessation 2011. Patient tells me that prior to this admission she was home on hospice. She wishes to return home with hospice as well. She is worried that she will not be able to do so she remains in the hospital for too long. She is also asking to have a COVID-vaccine booster, flu vaccine, and her POLST form redone. When asked about her prior POLST form decisions patient states she is not looking to make any changes to her POLST form but wants a new one because the old one was filled out during COVID and she believes this needs to be updated. She denies any urinary symptoms. She directs me to her urinary collection system with clear urine. She states that she feels this is proved she can go home and is no longer in need of the hospital. She adds that while she was at home and her urinary symptoms started hospice had started her on an antibiotic but she continued to have complications of blood clots in her urine which ultimately prompted her daughter to tell her "I can take it if you from the COPD or the transverse myelitis, but I am not can be okay for you from urinary tract infection that could have been easily treated." For that reason patient agreed to let her daughter called 911 and be brought to the hospital. Allergies Allergy/AdvReac Type Severity Reaction Status Date / Time No Known Allergies Allergy Mild Verified 10/13/22 21:35 Home Medications Medication Instructions Recorded Confirmed Type atorvastatin 20 mg tablet 1 tab PO QAM 04/28/22 10/13/22 History cholecalciferol (vitamin D3) 125 125 mcg PO 2XWK 04/28/22 10/13/22 History mcg (5,000 unit) tablet (Vitamin D3) ibuprofen 200 mg tablet 400 mg PO Q6H PRN Pain 04/28/22 10/13/22 History acetaminophen 500 mg tablet 1,000 mg PO Q6H PRN Fever Or Pain 10/13/22 10/13/22 History (Tylenol Extra Strength) ciprofloxacin HCl 500 mg tablet 500 mg PO BID 10/13/22 10/13/22 History famotidine 40 mg tablet (Pepcid) 40 mg PO QAM 10/13/22 10/13/22 History guaifenesin 600 mg tablet, 600 mg PO AMHS 10/13/22 10/13/22 History extended release 12 hr (Mucinex) ipratropium 0.5 mg-albuterol 3 mg 4 ml inhalation QID 10/13/22 10/13/22 History (2.5 mg base)/3 mL nebulization soln lorazepam 1 mg tablet 0.25 mg PO Q6 PRN Anxiety 10/13/22 10/17/22 History prednisone 10 mg tablet 10 mg PO QAM 10/13/22 10/13/22 History oseltamivir 75 mg capsule (Tamiflu) 75 mg PO BID 2 days #4 caps 10/18/22 Rx Patient History Medical History (Updated 10/18/22 @ 09:01 by Rubi Dhaliwal DNP) Acute exacerbation of chronic low back pain Advanced care planning/counseling discussion Chronic respiratory failure Chronic respiratory failure with hypoxia, on home O2 therapy COPD (chronic obstructive pulmonary disease) Failure to thrive Former smoker Palliative care encounter Pulmonary cachexia due to chronic obstructive pulmonary disease Subclavian artery stenosis, left Weakness generalized Family History Other Family history non-contributory Social History Smoking Status: Former smoker Hx Alcohol Use: No Hx Substance Use: No Preferred Language: German Communication Ability: Effective Hydro Excavation Operator Required: No Beliefs That Will Affect Care: None Current Living Situation: Family Other Information That Helps Us Care for You: No Feels Safe at Home: Yes Safety Concerns: Feels Safe At This Time Assistive Devices: Glasses, Walker and Wheelchair Review of Systems Review of Systems: All systems reviewed & are unremarkable except as noted in Subjective Physical Exam Physical Exam: Frail, cachectic female resting in bed semireclined with moderate respiratory distress, + conversational dyspnea, +3 word sentences, + use of abdominal muscles noted for breathing. Neck is supple without any stridor. Lungs are overall very diminished. She has generalized weakness. There are some arthritic deformities noted to her hands and her feet. She is awake alert and oriented x3. Results & Data ([facility]) Vital Signs (Past 12 Hours) Vital Signs Temp Pulse Resp BP Pulse Ox O2 Del Method O2 Flow Rate 10/18/22 07:34 36.6 C 96 H 16 108/72 93 Oxymask 3 10/18/22 07:09 88 20 91 Oxymask 2.5 10/17/22 21:30 36.6 C 95 H 18 108/65 95 Oxymask 4.0 Laboratory Results Labs and imaging reviewed Diagnostic Findings Labs and imaging reviewed PG Care Time/CCT Total # of Minutes Spent Total Time Spent: 60 Total Time Spent with Patient: Total time spent is greater than 50% in coordination of care (as documented) at patient's floor/unit and/or counseling patient: Advanced Care Planning 50650 Advanced Care Planning 30 Min Coding Level of Care Code New Pt INP/OBS CONSULT LVL 5, 80 MIN Patient Type New History Comprehensive Exam Expanded Problem Focused Medical Decision Making Moderate Complexity Diagnoses Palliative care encounter Z51.5 Advanced care planning/counseling discussion Z71.89 Chronic respiratory failure with hypoxia, on home O2 therapy J96.11; Z99.81 COPD (chronic obstructive pulmonary disease) J44.9 Former smoker Z87.891 Pulmonary cachexia due to chronic obstructive pulmonary disease J44.9; R64 Failure to thrive Weakness generalized R53.1 Additional Codes Advanced Care Planning - 86675 Advanced Care Planning 30 Min: 12348 Advanced Care Planning 30 Min ([id number])
[2022-10-18 09:13] LABS: Hematocrit (blood only) 38.9 % (34.1-44.9); Hemoglobin 13.1 g/dl (12.0-16.0); Mean Corpuscular Hemoglobin 31.6 pg (25.0-34.0); Mean Corpuscular Hgb Conc 33.7 g/dL (32.0-36.0); Mean Corpuscular Volume 93.7 fL (80.0-100.0); Mean Platelet Volume 8.9 fL (9.4-12.3); Platelet Count 405 K/uL (130-400); RDW Coefficient of Variation 13.3 % (11.5-14.5); RDW Standard Deviation 46.2 fL (36.4-46.3); Red Blood Count 4.15 M/uL (3.93-5.22)
[2022-10-18 09:38] LABS: BUN Creatinine Ratio 27.9 (10-20); Calcium 8.8 mg/dl (8.5-10.1); Creatinine Clr Calc Pharmacy 86.4 ml/min; Est GFR (African American) 114.5 ml/min; Est GFR (Non-African American) 98.8 ml/min; Magnesium 1.6 mg/dl (1.7-2.4); Potassium 3.8 mmol/L (3.5-5.1)
[2022-10-18] MEDS ORDERED: COVID19 BIVALENT Vaccine (Booster ONLY--Pfizer) 30mcg/0.3mL IM ONE (12:45)
--- NOTE | 2022-10-18 15:44 | Discharge Summary ---
Date of Service October 18, 2022 Admission HPI Per Admitting Provider 77-year-old lady with PMH of transverse myelitis, multiple sclerosis, back pain, factor V deficiency, closed sacral fracture presented to our ED 10/13 due to generalized weakness and worsening hematuria. Per patient, she has been having fever since last 1 week [employer], associated with generalized weakness and even further decreased appetite on background of her already poor appetite, myalgia, had sick contact at home [granddaughter with flulike symptoms, only COVID was done and it was negative], fever of 104 recorded by EMS per patient. Patient also complains of having hematuria and urinary tract infection almost a week ago [employer], was started on an antibiotic [patient not sure of which antibiotic] with improvement/clearing of urine but was changed to ciprofloxacin 3 days ago [employer] and per patient her hematuria started to worsen since then. Per RN patient had blood clots in the urine. Afebrile in the ED, WBC WNL, patient short of breath with conversation, sodium 127 likely secondary to her decreased p.o. intake. Patient reports she had been lean and thin since couple of years, also reports she had always had decreased appetite since last few years which has even worsened since flulike symptoms recently, patient reports feverish feeling at home, reports some headache and dizziness and weakness and sore throat and chest pain with cough, denies palpitation, reports no acute changes in her bowel movements. Patient quit smoking in 2011, denies alcohol and drug use Patient would not like to discuss medication due to being short of breath with conversation, outpatient chart reviewed for medications. Admission Exam Per Admitting Provider GENERAL: Alert and oriented x3. NAD, on 2.5 L O2 via OM. Lean and thin appearing. Lethargic/tired and chronically ill appearing. SOB w/ prolonged conversation. HEENT: No pallor, no icterus. Pupils equal, round and reactive to light. Oral mucosa moist. NECK: No JVD, no neck masses. HEART: S1 and S2 heard. Regular rate and rhythm. No murmur, no gallop. RESPIRATORY SYSTEM: Normal AP diameter. No accessory muscle use. No wheezing, b/b crackles. ABDOMEN: Soft, bowel sounds present, nontender, no distention. CENTRAL NERVOUS SYSTEM: No facial droop. Speech is clear. Obeys simple commands. Moves extremities. EXTREMITIES: No edema, no erythema seen. Principal Diagnosis Generalized weakness Likely failure to thrive Influenza A Hyponatremia Discharge Exam Constitutional: WD/WN, vitals as above, NAD, sitting up in bed, pleasant, conversing easily Respiratory: normal respiratory effort, lungs clear to auscultation, no wheeze, rales, rhonchi. Normal insp/exp effort, no accessory muscle use Cardiovascular: RRR, no murmur, no edema Vessels: no JVD or carotid bruit Chest: normal inspection of chest Abdomen: normal bowel sounds, soft, nontender, no hepatosplenomegaly Musculoskeletal: no cyanosis or clubbing, extremities motor strength 5/5 Skin: no rashes, warm and dry normal turgor Neurologic: PERRL, EOMI, accommodation nl, no face palsy, no dysarthria CN's II- XI intact bilaterally and moves all extremities Psychiatric: A+Ox3, euthymic affect Lymphatic: no cervical or axillary lymphadenopathy : deferred Discharge Data Allergies Allergy/AdvReac Type Severity Reaction Status Date / Time No Known Allergies Allergy Mild Verified 10/13/22 21:35 Consultations 10/13/22 21:10 ED Decision to Admit Stat 10/13/22 21:50 Consult Urology Routine 10/17/22 11:26 Consult Palliative Care Routine Ordered Studies 10/13/22 18:14 CT Abd and Pelvis [CT abd pelvis IV con only] Stat Hospital Course (1) Hypoxia: (2) Pulmonary cachexia due to chronic obstructive pulmonary disease: (3) Influenza A: (4) Urinary tract infection: Plan Patient is a 77-year-old female with past medical history of 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 She was also noted to have hematuria. In the ED, patient was satu rating well at her baseline oxygen requirement, normotensive and afebrile. She was found to have hyponatremia with sodium of 127. Her daughter brought her to the hospital revoking hospice as she was concerned of urinary tract infection symptoms. Patient was found to have influenza A. Chest x-ray was negative for any acute abnormality. She was started on Tamiflu. She underwent CT abdomen and pelvis which showed mild urothelial thickening of right extrarenal pelvis which could be due to chronic irritation from 9 mm nonobstructing stone. Urine culture was negative for any growth. Patient was treated empirically with ceftriaxone and completed 5-day course. Hematuria resolved on discharge. Urology was consulted; no further work-up was done. Discussion was done with the daughter over the phone regarding goals of care. She wanted to enroll her mom back to hospice care. Patient also confirmed the same. She wanted COVID booster prior to discharge which was given. New POLST form was completed. Palliative care was consulted for comanagement during the hospitalization. Patient was discharged back home with goal of resuming home hospice. She was given 2 days of Tamiflu to complete the course for influenza. Total Time Total Time Spent Total Time Spent (In Minutes): 60 Total Time Includes: Examination of the Patient, Discharge Planning, Medication Reconciliation, Communication With Other Providers and Other Discharge Plan Discharge Items Patient Disposition: Hospice - Home Reason For Visit: sob Discharge Diagnosis: Generalized weakness Failure to thrive Influenza A COPD Activity: Resume your previous activity Non-emergency contact: Primary Care Provider Call non-emergency contact if: you have any medication questions and your symptoms worsen Follow-up/Referrals: Jazz Sellers MD [Primary Care Provider] - Diet: Regular Addtl Attending Provider Instructions: You were admitted to the hospital with influenza A. You were treated with Tamiflu. You received 3 days of treatment. You are prescribed 2 more days of Tamiflu 75 mg twice daily. You are treated with IV antibiotic during her hospitalization for the urinary tract infection. Your urine culture was negative. Please continue to take all your other medications as prescribed before. Pending Studies at Discharge: No Stand-Alone Forms: My [facility] Medications and DC Order Prescriptions: New oseltamivir [Tamiflu] 75 mg Capsule 75 mg PO BID 2 Days Qty: 4 0RF Continued atorvastatin 20 mg tablet 1 tab PO QAM cholecalciferol (vitamin D3) [Vitamin D3] 125 mcg (5,000 unit) Tablet 125 mcg PO 2XWK Rx Instructions: sunday and sundays ibuprofen 200 mg Tablet 400 mg PO Q6H PRN (Reason: Pain) prednisone 10 mg tablet 10 mg PO QAM Rx Instructions: ordered for 14 days on 10/06/22 ipratropium-albuterol 0.5 mg-3 mg(2.5 mg base)/3 mL solution for nebulization 4 ml INHALATION QID Rx Instructions: using for breathing and coughing acetaminophen [Tylenol Extra Strength] 500 mg Tablet 1,000 mg PO Q6H PRN (Reason: Fever Or Pain) famotidine [Pepcid] 40 mg Tablet 40 mg PO QAM lorazepam 1 mg tablet 0.25 mg PO Q6 PRN (Reason: Anxiety) guaifenesin [Mucinex] 600 mg tablet extended release 12hr 600 mg PO AMHS Discontinued ciprofloxacin HCl 500 mg tablet 500 mg PO BID Rx Instructions: ordered 10/10/22 take for 7 days Discharge Orders: Discharge Order (Routine); Ordered 10/18/22 Ordered By: Dorian Pride Admission Data Admit Date/Time: 10/13/22 21:21 Attending Provider: Dorian Pride Admit Provider: Jerry Nash Primary Care Provider: Jazz Sellers Other Providers: Jerry Nash ; Tuan Parker ; Estefani Nesbitt Other Interventions: Discharge Summary Assessment (RN) Last Done: 10/18/22 13:40
== END 2022-10-18 14:07 | disposition hospice, home (50) | DRG 193 ==
LOC: ED 17:56 → SUATTDRO 21:21 → EDINP 21:21 → 4W 23:56 → 3W 10-14 23:04